=== PATIENT | male | born 1950 | race Caucasian/White ===

== ENCOUNTER 2019-12-28 18:57 | Inpatient (IN) ==
[~2019-12-28 18:57] MED LIST: FOLIC ACID 1 MG in SYRINGE 9.8 ML IV SCH
[2019-12-28] MEDS ORDERED: ACETAMINOPHEN 325 MG TAB PO PRN (22:33)
[2019-12-28] MEDS ORDERED: ALUMINUM/MAGNESIUM SUSP 30 ML UDC PO PRN (22:33)
[2019-12-28] MEDS ORDERED: ONDANSETRON INJ 2 MG/ML 2 ML VIAL IV PRN (22:33)
--- NOTE | 2019-12-28 22:35 | History & Physical Report ---
Date of Service December 28, 2019 Assessment & Plan (1) Alcoholism: 69-year-old male with past medical history hypertension, COPD, alcoholism with hepatic cirrhosis/portal hypertension/esophageal varices, thrombocytopenia, anemia presents from outside hospital for management of alcohol withdrawal. Alcohol withdrawal/abuse -Admit to Med Tele Unknown last ingestion of EtOH or how many drinks per day patient consumes. EtOH less than [address] on AWSS protocol -EKG: NSR with prolonged QT/QTc 452/491 IV thiamine 100 mg twice daily and IV folate 1 mg daily. Can transition to p.o. moving forward. Multivitamin when able We will make patient n.p.o. 2/2 AMS IVF with D5 with 1/2 NSS@100 mls/hr -B12, Folate, Mg, Phos, PT/INR in the AM. Phlebotomy was unable to get another stick, will retry in AM Unable to calculate MELD score at this time Appreciate case management assistance for outpatient management Continue with ongoing EtOH cessation counseling. Patient continues to decline per outpatient notes Hepatic cirrhosis/portal hypertension/esophageal varices/elevated liver enzymes Secondary to alcohol abuse. AST ALT ratio indicative of alcoholic pt Holding nadolol 40 mg daily Reviewed the outpatient notes it appears patient has declined any sort of GI follow-up -see CT Abd/Pelvis under 'Elevated T bili' -These are noted in patient's past medical history, however it appears patient has not had endoscopy from either [facility] or [facility]. It appears that patient was attempted to be set up with [facility], however patient did not follow through. Will consult GI consult while inpatient as patient will need EGD, variceal rule out and imaging for HCC every 6 months, etc. Thrombocytopenia/Macrocytic anemia Hemoglobin 10.2, Platelets 72 on admission. Secondary to alcoholism. Stable, near baseline Daily CBC GI consulted as above for additional consideration for EGD/colonoscopy for evaluation of chronic anemia Elevated T.bili -T bili 10.1, lipase 826 admission. Pt with h/o the same -nontender abd exam. Afebrile -CT Abd/Pelvis was done at OSH and only a CD was provided with images, no documentation. However, there are no available CD compatible computers available except that in radiology who are closed at this hour. We will send CD down in AM to be read and not repeat CT image here as no acute indication Hypokalemia Potassium 2.8 on admission Repleting with K riders Will trend daily and replete as necessary Hypertension We will hold patient's amlodipine 5 mg, nadolol 40 mg IV hydralazine as needed for systolic greater than 190 COPD Stable Continue Symbicort twice daily, Incruse Ellipta daily once able FEN/GI: D5 with 1/2 NSS@100. N.p.o. DVT prophylaxis: Heparin SQ Full code Dispo: Med telemetry. Appreciate CM assistance moving forward for discharge planning Admission and Anticipated Discharge Date Admission Date: December 28, 2019 History of Present Illness Chief Complaint: Alcohol withdrawal Primary Care Provider: Andressa Ballard DO 69-year-old male with past medical history hypertension, COPD, alcoholism with hepatic cirrhosis/portal hypertension/esophageal varices, thrombocytopenia, anemia presents as a direct admit from [facility] for alcohol withdrawal management. History collected from paperwork from outside hospital as patient is unable to provide history at this time. Patient presented to outside hospital for altered mental status, reported to be entering other people's apartments and was agitated. At outside hospital patient was given IV hydration along with a banana bag, IV Ativan. Transferred to our hospital for additional management. Outside hospital work-up: Pertinent labs: Hemoglobin 10.6, hematocrit 29.9, MCV 103.8, platelet 97, creatinine 1.51, T bili 10.9, potassium 2.8, alk phos 128, lipase 3232, AST 118, ammonia 46, lactic acid 2.1. ALT WNL 57, ethanol WNL 4 EKG: Normal sinus rhythm Chest x-ray: Hyperexpanded lungs without evidence of acute cardiopulmonary disease CT head: No acute intracranial abnormality. Moderate generalized volume loss and mild small vessel ischemic change. Allergies Allergy/AdvReac Type Severity Reaction Status Date / Time albuterol Allergy Mild eye Verified 11/07/19 18:32 swelling aspirin AdvReac Mild uset Verified 11/07/19 18:32 stomach Home Medications Home Medications Medication Instructions Recorded Confirmed Type amlodipine 5 mg tablet 5 mg PO DAILY 04/01/19 11/07/19 History cholecalciferol (vitamin D3) 1,250 50,000 units PO WEEKLY #8 cap 04/04/19 11/07/19 Rx mcg (50,000 unit) capsule ondansetron HCl 4 mg tablet 4 mg PO QID PRN #90 tab 04/04/19 10/27/19 Rx nadolol 40 mg tablet 40 mg PO DAILY #30 tab 08/30/19 11/07/19 Rx thiamine HCl (vitamin B1) 100 mg 100 mg PO DAILY #30 tab 08/30/19 11/07/19 Rx tablet omeprazole 20 mg capsule,delayed 20 mg PO DAILY #30 cap 09/01/19 11/07/19 Rx release umeclidinium 62.5 mcg/actuation 1 puffs INH DAILY #30 ea 09/30/19 11/07/19 Rx blister powder for inhalation fluticasone 250 mcg-salmeterol 50 1 puffs INH BID #14 ea 10/27/19 11/07/19 Rx mcg/dose blistr powdr for inhalation folic acid 1 mg tablet 1 mg PO DAILY 11/07/19 11/07/19 History magnesium oxide 400 mg (241.3 mg 400 mg PO DAILY 11/07/19 11/07/19 History magnesium) tablet Past Med/Surg History Social History Smoking Status: Former smoker Age Quit Using Tobacco: 38; packs per day: 3; Hx Alcohol Use: Yes (aox1, n/a) Alcohol type: beer Alcohol type Comment: 2-3 beers/day Hx Substance Use: No (aox1, n/a) Preferred Language: Spanish Communication Ability: Effective Visual Impairment: No Limitations Hearing Ability: Hard of Hearing Beliefs That Will Affect Care: None marital status: Current Living Situation: Alone Current Living Situation Comment: Lives in [facility] current occupational status: retired Childhood Exposure to Second-Hand Smoke: No caffeine: Yes (Coffee x 1/2 cup per day. ) during the past year weight has: remained stable Dental Care, Regularly: No Physical Activity Frequency: Daily Seatbelt Use: always Sunscreen Use: No Review of Systems Review of Systems: Unobtainable due to cognitive status Physical Exam Constitutional: + intoxicated appearing and + disheveled Eyes: + scleral abnormality (icteric ) Respiratory: normal respiratory effort; no labored breathing course breath sounds Cardiovascular: RRR, no murmur, no edema Gastrointestinal (Abdomen): normal bowel sounds, soft, nontender, no hepatosplenomegaly Skin: no rashes, warm and dry Psychiatric: Orientation: + not oriented x 3 confused, agitated at times Results & Data Results & Data ([facility]) Vital Signs (Past 12 Hours) Vital Signs Temp Pulse Resp BP Pulse Ox 12/28/19 21:09 36.4 C L 81 20 174/85 H 96 Laboratory Results Laboratory Results - last 24 hr 12/28/19 12/28/19 12/28/19 22:51 22:51 22:51 WBC 7.48 RBC 2.78 L Hgb 10.2 L Hct 28.8 L MCV 103.6 H MCH 36.7 H MCHC 35.4 RDW Std Deviation 56.6 H RDW Coeff of Margarita 14.9 H Plt Count 72 L MPV 8.8 Immature Gran % (Auto) 0.3 Neut % (Auto) 80.6 Lymph % (Auto) 9.6 [place] % (Auto) 8.7 Eos % (Auto) 0.7 Baso % (Auto) 0.1 Neut # (Auto) 6.03 Lymph # (Auto) 0.72 L [place] # (Auto) 0.65 H Eos # (Auto) 0.05 Baso # (Auto) 0.01 Immature Gran # (Auto) 0.02 Platelet Estimate Decreased L Echinocytes 1+ Sodium 141 Potassium 2.8 L Chloride 111 H Carbon Dioxide 23 Anion Gap 7.0 BUN 23 H Creatinine 1.28 Est Cr Clr Drug Dosing 41.8 Est GFR ( Amer) 64.8 Est GFR (Non-Af Amer) 55.9 BUN/Creatinine Ratio 18.3 Glucose 86 Calcium 9.3 Total Bilirubin 10.1 H AST 104 H ALT 55 Alkaline Phosphatase 120 H Ammonia 17.6 Total Protein 6.5 Albumin 2.9 L Globulin 3.6 Albumin/Globulin Ratio 0.8 L Lipase 826 H Ethyl Alcohol mg/dL 12/28/19 22:51 WBC RBC Hgb Hct MCV MCH MCHC RDW Std Deviation RDW Coeff of Margarita Plt Count MPV Immature Gran % (Auto) Neut % (Auto) Lymph % (Auto) [place] % (Auto) Eos % (Auto) Baso % (Auto) Neut # (Auto) Lymph # (Auto) [place] # (Auto) Eos # (Auto) Baso # (Auto) Immature Gran # (Auto) Platelet Estimate Echinocytes Sodium Potassium Chloride Carbon Dioxide Anion Gap BUN Creatinine Est Cr Clr Drug Dosing Est GFR ( Amer) Est GFR (Non-Af Amer) BUN/Creatinine Ratio Glucose Calcium Total Bilirubin AST ALT Alkaline Phosphatase Ammonia Total Protein Albumin Globulin Albumin/Globulin Ratio Lipase Ethyl Alcohol mg/dL < 3.0 Medications Administered Current Inpatient Medications Acetaminophen (Tylenol) 650 mg PO Q4H PRN PRN Reason: pain/fever Stop: 01/27/20 22:32 Al Hydrox/Mg Hydrox/Simethicone (Maalox) 30 ml PO Q6H PRN PRN Reason: Dyspepsia Stop: 01/27/20 22:32 Heparin Sodium (Porcine) (Heparin Sodium (Porcine)) 5,000 units SQ Q12 BRANDI Stop: 01/28/20 08:59 Hydralazine HCl (Hydralazine Hcl) 10 mg IV Q6H PRN PRN Reason: Hypertension Stop: 01/27/20 22:59 Dextrose/Sodium Chloride (D5w And 1/2nss) 1,000 mls @ 100 mls/hr IV .Q10H BRANDI Stop: 01/27/20 22:59 Last Infusion: 12/28/19 23:58 Dose: 100 mls/hr Documented by: Thiamine HCl 100 mg/ Syringe 10 mls @ 2 mls/min IV BID BRANDI Stop: 01/27/20 22:59 Last Admin: 12/28/19 23:39 Dose: 2 mls/min Documented by: Lorazepam (Ativan) 1 mg in 2 mls @ 2 mls/min IV UD PRN; Protocol PRN Reason: EtOH Withdrawl AWSS Score 6,7 Stop: 01/27/20 22:54 Lorazepam (Ativan) 2 mg in 4 mls @ 4 mls/min IV UD PRN; Protocol PRN Reason: EtOH Withdrawl AWSS Score 8,9 Stop: 01/27/20 22:54 Lorazepam (Ativan) 3 mg in 6 mls @ 4 mls/min IV ONCE PRN; Protocol PRN Reason: EtOH Withdrawl AWSS Score >=10 Stop: 01/27/20 22:54 Folic Acid 1 mg/ Syringe 10 mls @ 5 mls/min IV QAM BRANDI Stop: 01/28/20 08:59 Potassium Chloride (K Jamal / Wtr) 10 meq in 100 mls @ 100 mls/hr IV Q1H BRANDI Stop: 12/29/19 07:44 Last Admin: 12/28/19 23:59 Dose: 100 mls/hr Documented by: Ondansetron HCl (Zofran) 4 mg IV Q6H PRN PRN Reason: Nausea Stop: 01/27/20 22:32 Supervising Physician Co-Signing Physician Notes Patient seen and examined, chart reviewed, case discussed with Dr. Houston and I agree with his assessment and plan as documented above. Resident Activity Tracking Resident Involvement: Resident Care Provided Care Provided: Adult Hospital Medicine
[2019-12-28] MEDS ORDERED: LORazepam 3 MG/6 ML VIAL IV PRN (22:55)
[2019-12-28] MEDS ORDERED: LORazepam 1 MG/2 ML VIAL IV PRN (22:55)
[2019-12-28] MEDS ORDERED: ATIVAN IV ALCOHOL WITHDRAWL IV PRN (22:55)
[2019-12-28] MEDS ORDERED: LORazepam 2 MG/4 ML VIAL IV PRN (22:55)
[2019-12-28] MEDS ORDERED: HydrALAZINE HCL 20 MG/ML VIAL IV PRN (23:00)
[2019-12-28 23:05] LABS: Hematocrit (blood only) 28.8 % (42-52); Hemoglobin 10.2 g/dL (14.0-18.0); Mean Corpuscular Hemoglobin 36.7 pg (25-34); Mean Corpuscular Hgb Conc 35.4 g/dL (32-36); Mean Corpuscular Volume 103.6 fL (80-100); RDW Coefficient of Variation 14.9 % (11.5-14.5); RDW Standard Deviation 56.6 fL (36.4-46.3); Red Blood Count 2.78 M/uL (4.7-6.1); White Blood Count 7.48 K/uL (4.8-10.8)
[2019-12-28 23:24] LABS: Albumin Globulin Ratio 0.8 (0.9-2); Albumin Level 2.9 gm/dl (3.4-5.0); BUN Creatinine Ratio 18.3 (10-20); Bilirubin,Total 10.1 mg/dl (0.2-1); Calcium 9.3 mg/dl (8.5-10.1); Creatinine Clr Calc Pharmacy 41.8 ml/min; Est GFR (African American) 64.8; Est GFR (Non-African American) 55.9; Globulin 3.6 gm/dl (2.5-4.0); Potassium 2.8 mmol/L (3.5-5.1); Total Protein 6.5 gm/dl (6.4-8.2)
[2019-12-28 23:38] LABS: Mean Platelet Volume 8.8 fL (7.4-10.4); Platelet Count 72 K/uL (130-400)
[2019-12-28 23:39] LABS: Basophils # (auto) 0.01 K/uL (0-0.2); Basophils % (auto) 0.1 %; Echinocytes 1+; Eosinophils # (auto) 0.05 K/uL (0-0.5); Eosinophils % (auto) 0.7 %; Immature Granulocytes # (auto) 0.02 K/uL (0.00-0.02); Immature Granulocytes % (auto) 0.3 %; Lymphocytes # (auto) 0.72 K/uL (1.2-3.4); Lymphocytes % (auto) 9.6 %; Monocytes # (auto) 0.65 K/uL (0.11-0.59); Monocytes % (auto) 8.7 %; Neutrophils # (auto) 6.03 K/uL (1.4-6.5); Neutrophils % (auto) 80.6 %; Platelet Estimate Decreased (Normal)
[2019-12-28] MEDS: THIAMINE HCL 100 MG in SYRINGE 9 ML IV SCH (23:39)
[2019-12-28] MEDS: D5W AND 1/2NSS 1,000 ML IV SCH (23:41)
[2019-12-28] MEDS: POTASSIUM CHLORIDE / WTR 10 MEQ/100 ML PLCT IV SCH (23:59)
[2019-12-29] MEDS: POTASSIUM CHLORIDE / WTR 10 MEQ/100 ML PLCT IV SCH ×11 (01:09→15:18)
[2019-12-29 05:35] LABS: Hematocrit (blood only) 28.2 % (42-52); Hemoglobin 10.3 g/dL (14.0-18.0); Mean Corpuscular Hgb Conc 36.5 g/dL (32-36); Mean Corpuscular Volume 104.1 fL (80-100); RDW Standard Deviation 56.6 fL (36.4-46.3); Red Blood Count 2.71 M/uL (4.7-6.1); White Blood Count 8.67 K/uL (4.8-10.8)
[2019-12-29 05:36] LABS: Mean Platelet Volume 8.9 fL (7.4-10.4); Platelet Count 69 K/uL (130-400)
[2019-12-29 05:44] LABS: INR 1.9 (0.9-1.1)
[2019-12-29 06:06] LABS: Albumin Globulin Ratio 0.8 (0.9-2); Albumin Level 2.9 gm/dl (3.4-5.0); BUN Creatinine Ratio 17.2 (10-20); Bilirubin,Total 10.4 mg/dl (0.2-1); Creatinine Clr Calc Pharmacy 42.8 ml/min; Est GFR (African American) 66.7; Est GFR (Non-African American) 57.6; Globulin 3.6 gm/dl (2.5-4.0); Magnesium 1.5 mg/dl (1.8-2.4); Potassium 3.4 mmol/L (3.5-5.1); Total Protein 6.5 gm/dl (6.4-8.2)
[2019-12-29 06:26] LABS: Basophils # (auto) 0.01 K/uL (0-0.2); Basophils % (auto) 0.1 %; Eosinophils # (auto) 0.05 K/uL (0-0.5); Eosinophils % (auto) 0.6 %; Immature Granulocytes # (auto) 0.01 K/uL (0.00-0.02); Immature Granulocytes % (auto) 0.1 %; Lymphocytes # (auto) 0.68 K/uL (1.2-3.4); Lymphocytes % (auto) 7.8 %; Monocytes # (auto) 0.78 K/uL (0.11-0.59); Neutrophils # (auto) 7.14 K/uL (1.4-6.5); Neutrophils % (auto) 82.4 %; Target Cells 1+
--- NOTE | 2019-12-29 06:59 | Billing Data ---
Date of Service December 28, 2019 Coding Level of Care Code 51804 Initial Inpt Care Lvl 3
[2019-12-29 07:09] LABS: Phosphorus 0.9 mg/dl (2.5-4.9)
[2019-12-29] MEDS ORDERED: POTASSIUM PHOS 3 MMOL/1 ML INFUSION IV STA ×2 (08:03→11:16)
[2019-12-29 08:12] LABS: Folate (Folic Acid) 13.12 ng/ml (>5.38)
[2019-12-29] MEDS: FOLIC ACID 1 MG in SYRINGE 9.8 ML IV SCH (08:12)
[2019-12-29] MEDS: THIAMINE HCL 100 MG in SYRINGE 9 ML IV SCH ×2 (08:13→21:00)
[2019-12-29] MEDS: HEPARIN SOD 5,000 UNIT/0.5 ML VIAL SQ SCH ×2 (08:16→20:55)
[2019-12-29] MEDS ORDERED: POTASSIUM PHOSPHATE 30 MMOL in SODIUM CHLORIDE 0.9% 500 ML IV ONE (08:45)
--- NOTE | 2019-12-29 08:57 | Electrocardiogram Report ---
Test Reason : Blood Pressure : / mmHG Vent. Rate : 071 BPM Atrial Rate : 071 BPM P-R Int : 158 ms QRS Dur : 080 ms QT Int : 452 ms P-R-T Axes : 067 020 063 degrees QTc Int : 491 ms Normal sinus rhythm Normal ECG No previous ECGs available Confirmed by Aquiles Burgos ([id number]) on 12/29/2019 8:56:45 AM Referred By: Soraida Dong Confirmed By:Aquiles Burgos
[2019-12-29] MEDS: MAGNESIUM OXIDE 400 MG TAB PO SCH ×2 (09:00→09:16)
--- NOTE | 2019-12-29 10:26 | Gastrointestinal Consultation ---
Date of Consultation December 29, 2019 Supervising Physician Co-Signing Physician Notes I have personally seen and examined the patient with STEPHANIE Hilton. Her note reflects my exam and findings. I agree with her impression and plan. ETOH level on admission was normal. Unclear when patient had last drink. At this point treat MS changes as hepatic encephalopathy; facilitate frequent BMs, keep K above 4. Also check AFP. Guille Higgins M.D. History of Present Illness Reason for Consultation: Hepatic Cirrhosis Requesting Physician: Dr. Padilla Attending Physician: Jennifer Padilla MD History of Present Illness Mr. Ted Eason is a 69 yr old male pt of Andressa Ballard with a hx of HTN, COPD who presents to the ED for alcohol withdrawal. The pt's H&P records that he has ETOH cirrhosis, portal HTN and esopahgeal varices. This consult was initially placed for [facility], however, because he establised with [facility] by televideo visit in August, the consult was changed to our group. A review of that [facility] televideo visit shows that he was referred for cirrhosis, that he is continuing to drink alcohol. Doormen. has not yet obtained any records of prior endoscopy apparently completed by [facility]. Labs were ordered but pt has not presented to a lab to obtain and the pt reported that he was unable to arrange OP EGD/COlonoscopy due to transporatation issues. Evidence that he has cirrhosis, from prior imaging in the [facility] records: CT 08/26/19 mentions a nodular contour to the liver and an enlarged spleen. His pancytopenia is also suggestive of cirrhosis: Hb 10, Hct 28, platlets 69. INR is elevated at 1.9 suggestive of liver disfunction. During my interview and exam, he was arousable but did not answer any questions and on command to open his eyes opened only his right eye. He c/o being cold and resisted exam. He is not obtunded. Allergies Allergy/AdvReac Type Severity Reaction Status Date / Time albuterol Allergy Mild eye Verified 11/07/19 18:32 swelling aspirin AdvReac Mild uset Verified 11/07/19 18:32 stomach Home Medications Home Medications Medication Instructions Recorded Confirmed Type amlodipine 5 mg tablet 5 mg PO DAILY 04/01/19 11/07/19 History cholecalciferol (vitamin D3) 1,250 50,000 units PO WEEKLY #8 cap 04/04/19 11/07/19 Rx mcg (50,000 unit) capsule ondansetron HCl 4 mg tablet 4 mg PO QID PRN #90 tab 04/04/19 10/27/19 Rx nadolol 40 mg tablet 40 mg PO DAILY #30 tab 08/30/19 11/07/19 Rx thiamine HCl (vitamin B1) 100 mg 100 mg PO DAILY #30 tab 08/30/19 11/07/19 Rx tablet omeprazole 20 mg capsule,delayed 20 mg PO DAILY #30 cap 09/01/19 11/07/19 Rx release umeclidinium 62.5 mcg/actuation 1 puffs INH DAILY #30 ea 09/30/19 11/07/19 Rx blister powder for inhalation fluticasone 250 mcg-salmeterol 50 1 puffs INH BID #14 ea 10/27/19 11/07/19 Rx mcg/dose blistr powdr for inhalation folic acid 1 mg tablet 1 mg PO DAILY 11/07/19 11/07/19 History magnesium oxide 400 mg (241.3 mg 400 mg PO DAILY 11/07/19 11/07/19 History magnesium) tablet Patient History Social History Smoking Status: Former smoker Age Quit Using Tobacco: 38; packs per day: 3; Hx Alcohol Use: Yes (aox1, n/a) Alcohol type: beer Alcohol type Comment: 2-3 beers/day Hx Substance Use: No (aox1, n/a) Preferred Language: Maori Communication Ability: Effective Visual Impairment: No Limitations Hearing Ability: Hard of Hearing Beliefs That Will Affect Care: None marital status: Current Living Situation: Alone Current Living Situation Comment: Lives in [facility] current occupational status: retired Childhood Exposure to Second-Hand Smoke: No caffeine: Yes (Coffee x 1/2 cup per day. ) during the past year weight has: remained stable Dental Care, Regularly: No Physical Activity Frequency: Daily Seatbelt Use: always Sunscreen Use: No Results & Data ([facility]) Vital Signs (Past 12 Hours) Vital Signs Temp Pulse Pulse Resp BP Pulse Ox 12/29/19 08:03 37.0 C 86 18 130/75 96 12/29/19 07:00 80 12/29/19 04:15 36.3 C L 73 20 144/70 H 97 12/29/19 00:29 67 12/28/19 22:35 75
[2019-12-29 10:56] LABS: BUN Creatinine Ratio 15.4 (10-20); Calcium 8.5 mg/dl (8.5-10.1); Creatinine Clr Calc Pharmacy 42.8 ml/min; Est GFR (African American) 66.7; Est GFR (Non-African American) 57.6; Potassium 3.6 mmol/L (3.5-5.1)
[2019-12-29 11:12] LABS: Phosphorus 1.2 mg/dl (2.5-4.9)
[2019-12-29] MEDS: D5W AND 1/2NSS 1,000 ML IV SCH (11:29)
[2019-12-29] MEDS: MAGNESIUM SULFATE / D5W 1 GM/100 ML BAG IV SCH ×2 (13:15→15:18)
[2019-12-29] MEDS: LACTULOSE SYRUP 20 GM/30 ML UDC PO SCH ×2 (15:17→20:54)
--- NOTE | 2019-12-29 15:38 | XCELERA ---
[id number]
[2019-12-29 16:15] LABS: BUN Creatinine Ratio 16.3 (10-20); Calcium 8.1 mg/dl (8.5-10.1); Creatinine Clr Calc Pharmacy 48.6 ml/min; Est GFR (African American) 77.9; Est GFR (Non-African American) 67.2; Phosphorus 2.6 mg/dl (2.5-4.9); Potassium 4.3 mmol/L (3.5-5.1)
[2019-12-29] MEDS: RIFAXIMIN 550 MG TABLET PO SCH (20:54)
--- NOTE | 2019-12-29 22:04 | Hospitalist Progress Note ---
Date of Service December 29, 2019 Assessment & Plan (1) Altered mental status: Ted Eason is a 69-year-old male with past medical history hypertension, COPD, alcoholism with hepatic cirrhosis/portal hypertension/esophageal varices, thrombocytopenia, anemia presents from outside hospital for management of alcohol withdrawal. Altered mental status - metabolic/hepatic Similar presentation during September 2019 admission at [facility]. confusion during which was confused but did not have a congruent ethyl alcohol (4mg/dL). Unable to obtain collateral history of continued alcohol use. No metabolic acidosis or anion gap No sign of infection. suspect hepatic encephalopathy in setting of alcohol use. -GI consult GI consult recommendations: encourage BM with lactulose, replete K, check AFP. IV thiamine 100 mg twice daily and IV folate 1 mg daily. Hepatic cirrhosis/portal hypertension/esophageal varices/elevated liver enzymes and bilirubin Secondary to alcohol abuse. AST ALT ratio indicative of alcoholic pt Holding nadolol 40 mg daily Reviewed the outpatient notes it appears patient has declined any sort of GI follow-up Thrombocytopenia/Macrocytic anemia Hemoglobin 10.2, Platelets 72 on admission. Secondary to alcoholism. Stable, near baseline Daily CBC. Macrocytic anemia is stable. Hypokalemia Potassium 2.8 on admission Repleting with K riders Will trend daily and replete as necessary Prolonged QTc -EKG: NSR with prolonged QT/QTc 452/491 -replete K Hypophosphatemia -repletion Hypertension We will hold patient's amlodipine 5 mg, nadolol 40 mg IV hydralazine as needed for systolic greater than 190 COPD Stable Continue Symbicort twice daily, Incruse Ellipta daily once able FEN/GI: No fluids. Continue NPO DVT prophylaxis: Heparin SQ Full code Dispo: Med tele Admission and Anticipated Discharge Date Admission Date: December 28, 2019 Supervising Physician Co-Signing Physician Notes Resident Physician Supervision Note: I independently interviewed and examined the patient and verified the valencia history and physical, reviewed labs and image studies, discussed the case with the resident Dr. Johnson and agree with the findings and care plan. Subjective Ted Eason is a 69 year old male w/ hx of hypertension, COPD, alcoholism with hepatic cirrhosis/portal hypertension/esophageal varices, thrombocytopenia, anemia who presents was directly admited to our service from [facility] for confusion. Unable to obtain much history from patient given his mental status. On initial visit to room, patient was babbling and not responding to provider. Upon revisit, patient was able to answer but was still very sleepy. Review of Systems Review of Systems: Unable to obtain much ROS from patient given his mental s tatus. Cardiovascular: Denies Chest pain Respiratory: Denies shortness of breath Gastrointestinal: Denies abdominal pain Musculoskeletal: Denies muscle aches/pain Physical Exam Physical Exam: General: NAD. HEENT: Atraumatic, normocephalic. Jaundiced eyes. Pulm: CTAB. -wheezes, -rales, -rhonchi. No increase work of breathing. No respiratory distress. No lower extremity edema. Cardiac: RRR, -mrg. Abdominal: Nontender, nondistended, soft. Results & Data Results & Data ([facility]) Vital Signs (Past 12 Hours) Vital Signs Temp Pulse Resp BP Pulse Ox 12/29/19 16:00 36.5 C 82 18 125/64 96 12/29/19 13:43 36.8 C 75 18 132/62 96
[2019-12-30] MEDS: MAGNESIUM OXIDE 400 MG TAB PO SCH (08:40)
[2019-12-30] MEDS: HEPARIN SOD 5,000 UNIT/0.5 ML VIAL SQ SCH ×2 (08:40→21:15)
[2019-12-30] MEDS: FOLIC ACID 1 MG in SYRINGE 9.8 ML IV SCH (08:40)
[2019-12-30] MEDS: RIFAXIMIN 550 MG TABLET PO SCH ×2 (08:40→21:19)
[2019-12-30] MEDS: THIAMINE HCL 100 MG in SYRINGE 9 ML IV SCH ×2 (08:40→21:19)
[2019-12-30] MEDS: LACTULOSE SYRUP 20 GM/30 ML UDC PO SCH ×3 (08:44→21:18)
[2019-12-30 09:32] LABS: Hematocrit (blood only) 26.6 % (42-52); Hemoglobin 9.4 g/dL (14.0-18.0); Mean Corpuscular Hemoglobin 37.2 pg (25-34); Mean Corpuscular Hgb Conc 35.3 g/dL (32-36); Mean Corpuscular Volume 105.1 fL (80-100); RDW Coefficient of Variation 15.4 % (11.5-14.5); RDW Standard Deviation 59.5 fL (36.4-46.3); Red Blood Count 2.53 M/uL (4.7-6.1)
[2019-12-30 09:40] LABS: Albumin Level 2.5 gm/dl (3.4-5.0); BUN Creatinine Ratio 15.1 (10-20); Calcium 8.4 mg/dl (8.5-10.1); Creatinine Clr Calc Pharmacy 51.2 ml/min; Est GFR (African American) 77.9; Est GFR (Non-African American) 67.2; Magnesium 1.8 mg/dl (1.8-2.4); Potassium 3.8 mmol/L (3.5-5.1)
[2019-12-30 09:44] LABS: Albumin Globulin Ratio 0.8 (0.9-2); Bilirubin,Total 9.5 mg/dl (0.2-1); Globulin 3.2 gm/dl (2.5-4.0); Phosphorus 1.7 mg/dl (2.5-4.9); Total Protein 5.7 gm/dl (6.4-8.2)
[2019-12-30 10:37] LABS: Mean Platelet Volume 9.4 fL (7.4-10.4); Platelet Count 66 K/uL (130-400)
[2019-12-30 10:38] LABS: Basophils # (auto) 0.01 K/uL (0-0.2); Basophils % (auto) 0.1 %; Echinocytes 1+; Eosinophils % (auto) 0.9 %; Immature Granulocytes # (auto) 0.03 K/uL (0.00-0.02); Immature Granulocytes % (auto) 0.3 %; Lymphocytes # (auto) 0.82 K/uL (1.2-3.4); Lymphocytes % (auto) 7.6 %; Monocytes # (auto) 1.27 K/uL (0.11-0.59); Monocytes % (auto) 11.8 %; Neutrophils # (auto) 8.57 K/uL (1.4-6.5); Neutrophils % (auto) 79.3 %
[2019-12-30 11:24] LABS: INR 1.9 (0.9-1.1); Prothrombin Time 18.9 Seconds (9.0-12.0)
--- NOTE | 2019-12-30 12:34 | Gastroenterology Progress Note ---
Date of Service December 30, 2019 Assessment & Plan (1) Hepatic cirrhosis: Mr. Eason is a 69 yr old male with ETOH cirrhosis, (likely) continuing to drink alcohol who arrived in confusion/lethargy - likely hepatic encephalopathy, now improving on lactulose. 1. Continue lactulose and rifaximin 2. Needs complete and permanent alcohol cessation 3. Follow CBC INR, LFTs periodically possibly every 2 days. 4. Low-salt diet 5. Some records say that he was recently admitted to [facility] and underwent endoscopy. We requested records and are awaiting reports from [facility]. 6. When ready for discharge needs to get set up for outpatient GI follow-up. Will need every 6 month liver imaging and AFP, as well as meds for prevention of hepatic encephalopathy. He may be due for an EGD. 7. GI will watch peripherally, expect LFTs to fluctuate somewhat but trend downward slowly . Please notify us if any worsening in condition. Present on Admission?: Yes Admission and Anticipated Discharge Date Admission Date: December 28, 2019 Supervising Physician Co-Signing Physician Notes I have personally seen and examined the patient with STEPHANIE Hilton on 12/30/19. Her note reflects my exam and findings. I agree with her impression and plan. Cont treatment of hepatic enceph. Once stable, out patient f/u with regular providers. Guille Higgins M.D. Subjective Mr. Eason is a 69-year-old male with alcoholic cirrhosis, possibly continuing to drink alcohol, who presented on 12/29/2019 for management of alcohol withdrawal. On arrival, lipase was elevated, he was quite lethargic. Today he is more awake able to walk with assistance and feed himself. Now passing 3-4 loose brown BMs/day on lactulose/rifaxamin. WBC 10, hemoglobin 9.4. T Bili 10 ->9 INR 1.9->1.9 Kidney function is preserved. Review of Systems Review of Systems: Unobtainable due to mental health condition Physical Exam Constitutional: WD/WN, vitals as above + ill appearing and + thin Eyes: PERRL, conjunctivae normal, anicteric sclerae ENMT: external ear and nose normal, oropharynx normal Neck: trachea midline, no thyromegaly Respiratory: Auscultation: + diminished lung sounds (at bases) Cardiovascular: RRR, no murmur, no edema Gastrointestinal (Abdomen): normal bowel sounds, soft, nontender, no he patosplenomegaly Skin: + jaundice Neurologic: PERRL, EOMI, accommodation nl, no face palsy, no dysarthria Motor/Sensory: no tremor No asterix Psychiatric: awake, dull affect, answers only a few simple questions. Results & Data ([facility]) Vital Signs (Past 12 Hours) Vital Signs Temp Pulse Pulse Resp BP BP Pulse Ox 12/30/19 11:38 37.2 C 85 20 108/63 97 12/30/19 07:30 37.3 C 56 L 16 120/65 93 12/30/19 07:00 96 H 12/30/19 04:57 86 12/30/19 03:30 37.2 C 83 20 137/74 98 12/30/19 00:51 37.3 C 79 20 119/66 96 Laboratory Results See HPI for pertinent labs
--- NOTE | 2019-12-30 20:34 | Hospitalist Progress Note ---
Date of Service December 30, 2019 Assessment & Plan (1) Altered mental status: Ted Eason is a 69-year-old male with past medical history hypertension, COPD, alcoholism with hepatic cirrhosis/portal hypertension/esophageal varices, thrombocytopenia, anemia presents from outside hospital for management of alcohol withdrawal. Altered mental status - metabolic/hepatic Similar presentation during September 2019 admission at [facility]. confusion during which was confused but did not have a congruent ethyl alcohol (4mg/dL). Mentation improving. [place] Unable to obtain collateral history of continued alcohol use. No metabolic acidosis or anion gap No sign of infection. suspect hepatic encephalopathy in setting of alcohol use. -GI consult GI consult recommendations: encourage BM with lactulose, replete K, check AFP . IV thiamine 100 mg twice daily and IV folate 1 mg daily. Hepatic cirrhosis/portal hypertension/esophageal varices/elevated liver enzymes and bilirubin Secondary to alcohol abuse. AST ALT ratio indicative of alcoholic pt Holding nadolol 40 mg daily Reviewed the outpatient notes it appears patient has declined any sort of GI follow-up Thrombocytopenia/Macrocytic anemia -Hemoglobin decreased slightly, 10.3-94, Platelets 72 on admission. Secondary to alcoholism. Stable, near baseline Daily CBC. Macrocytic anemia is stable. Hypokalemia Potassium 2.8 on admission Repleting with K riders Will trend daily and replete as necessary Prolonged QTc -EKG: NSR with prolonged QT/QTc 452/491 -replete K Hypophosphatemia -repletion Hypertension We will hold patient's amlodipine 5 mg, nadolol 40 mg IV hydralazine as needed for systolic greater than 190 COPD Stable Continue Symbicort twice daily, Incruse Ellipta daily once able FEN/GI: No fluids. Continue NPO DVT prophylaxis: Heparin SQ Full code Dispo: Med tele Admission and Anticipated Discharge Date Admission Date: December 28, 2019 Subjective He was able to provide additional history today. He endorses some drinking at home, last drink was 1 week ago. He drinks beer and occasional hard liquor. Denies any fever, chills, nausea, vomiting, chest pain, shortness of breath, abdominal pain. He denies alcohol withdrawal symptoms. Review of Systems Review of Systems: Constitutional: Denies fever, chills, Cardiovascular: Denies Chest pain Respiratory: Denies shortness of breath, cough, difficulty breathing Gastrointestinal: Denies abdominal pain, nausea, vomiting, constipation, diarrhea Genitourinary: Denies urinary symptoms including dysuria Musculoskeletal: Denies weakness Neurological: Denies headache Physical Exam Physical Exam: General: A&Ox3. NAD. Cooperative. HEENT: Atraumatic, normocephalic. Scleral icterus bilaterally. Pulm: CTAB. -wheezes, -rales, -rhonchi. Symmetrical chest rise. No increase work of breathing. No respiratory distress. Cardiac: RRR, -mrg. Radial pulses intact and symmetrical. Abdominal: Nontender, nondistended, soft. BS present. Neuro: mild tremor on R hand Results & Data Results & Data ([facility]) Vital Signs (Past 12 Hours) Vital Signs Temp Pulse Pulse Resp BP BP Pulse Ox 12/30/19 15:08 37.4 C 82 18 111/60 96 12/30/19 14:20 83 12/30/19 11:38 37.2 C 85 20 108/63 97
[2019-12-31 05:55] LABS: Hematocrit (blood only) 24.7 % (42-52); Hemoglobin 8.8 g/dL (14.0-18.0); Mean Corpuscular Hemoglobin 37.4 pg (25-34); Mean Corpuscular Hgb Conc 35.6 g/dL (32-36); Mean Corpuscular Volume 105.1 fL (80-100); RDW Coefficient of Variation 15.8 % (11.5-14.5); RDW Standard Deviation 59.6 fL (36.4-46.3); Red Blood Count 2.35 M/uL (4.7-6.1); White Blood Count 8.19 K/uL (4.8-10.8)
[2019-12-31 05:56] LABS: Platelet Count 74 K/uL (130-400)
[2019-12-31 06:38] LABS: Albumin Globulin Ratio 0.7 (0.9-2); Albumin Level 2.2 gm/dl (3.4-5.0); BUN Creatinine Ratio 15.8 (10-20); Bilirubin,Total 7.6 mg/dl (0.2-1); Calcium 8.1 mg/dl (8.5-10.1); Creatinine Clr Calc Pharmacy 52.7 ml/min; Est GFR (African American) 80.5; Est GFR (Non-African American) 69.5; Globulin 3.2 gm/dl (2.5-4.0); Magnesium 1.6 mg/dl (1.8-2.4); Phosphorus 2.2 mg/dl (2.5-4.9); Potassium 3.4 mmol/L (3.5-5.1); Total Protein 5.4 gm/dl (6.4-8.2)
[2019-12-31 06:40] LABS: Basophils # (auto) 0.01 K/uL (0-0.2); Basophils % (auto) 0.1 %; Echinocytes 2+; Eosinophils % (auto) 3.7 %; Immature Granulocytes # (auto) 0.02 K/uL (0.00-0.02); Immature Granulocytes % (auto) 0.2 %; Lymphocytes # (auto) 1.06 K/uL (1.2-3.4); Lymphocytes % (auto) 12.9 %; Monocytes # (auto) 1.11 K/uL (0.11-0.59); Monocytes % (auto) 13.6 %; Neutrophils # (auto) 5.69 K/uL (1.4-6.5); Neutrophils % (auto) 69.5 %; Target Cells 1+
[2019-12-31] MEDS: RIFAXIMIN 550 MG TABLET PO SCH ×2 (08:24→20:27)
[2019-12-31] MEDS: HEPARIN SOD 5,000 UNIT/0.5 ML VIAL SQ SCH ×2 (08:24→20:27)
[2019-12-31] MEDS: MAGNESIUM OXIDE 400 MG TAB PO SCH (08:25)
[2019-12-31] MEDS: FOLIC ACID 1 MG in SYRINGE 9.8 ML IV SCH (08:25)
[2019-12-31] MEDS: LACTULOSE SYRUP 20 GM/30 ML UDC PO SCH ×3 (08:25→20:26)
[2019-12-31] MEDS: THIAMINE HCL 100 MG in SYRINGE 9 ML IV SCH ×2 (08:25→20:27)
--- NOTE | 2019-12-31 12:04 | Hospitalist Progress Note ---
Date of Service December 31, 2019 Assessment & Plan (1) Altered mental status: Ted Eason is a 69-year-old male with past medical history hypertension, COPD, alcoholism with hepatic cirrhosis/portal hypertension/esophageal varices, thrombocytopenia, anemia presents from outside hospital for management of alcohol withdrawal. Altered mental status - metabolic/hepatic Similar presentation during September [address] [facility]. confusion during which was confused but did not have a congruent ethyl alcohol (4mg/dL). Mentation improving. Unable to obtain collateral history of continued alcohol use. Patient report inconsistent h/o last drink and amount of alcohol use. No metabolic acidosis or anion gap No sign of infection. Suspect hepatic encephalopathy in setting of alcohol use. -GI consult GI consult recommendations: encourage BM with lactulose, replete K, check AFP. IV thiamine 100 mg twice daily and IV folate 1 mg daily. Hepatic cirrhosis/portal hypertension/esophageal varices/elevated liver enzymes and bilirubin Secondary to alcohol abuse. AST ALT ratio indicative of alcoholic pt Holding nadolol 40 mg daily. To resume in am. Reviewed the outpatient notes it appears patient has declined any sort of GI follow-up Thrombocytopenia/Macrocytic anemia -Hemoglobin decreased slightly, 10.3-94, Platelets 72 on admission. Secondary to alcoholism. Stable, near baseline Daily CBC. Macrocytic anemia is stable. Hypokalemia Potassium 3.4 today Will trend daily and replete as necessary Prolonged QTc -EKG: NSR with prolonged QT/QTc 452/491 -replete K as needed Hypophosphatemia -repletion as needed Hypertension Holding patient's amlodipine 5 mg, nadolol 40 mg since hypotensive on admission. COPD Stable Continue Symbicort twice daily, Increase Ellipta daily once able FEN/GI: No fluids. Continue NPO DVT prophylaxis: Heparin SQ Full code Dispo: PT recommends physical therapy placement. Case management have been notified and are seeking placement for patient. They are also aware of the patient's housing concern and working to address these issues. Admission and Anticipated Discharge Date Admission Date: December 28, 2019 Supervising Physician Co-Signing Physician Notes Resident Physician Supervision Note: I independently interviewed and examined the patient and verified the valencia history and physical, reviewed labs and image studies, discussed the case with the resident Dr. Mcdonald and agree with the findings and care plan. Subjective Mr. Jean is doing well today. He reports no new symptoms and says he feels good. He is worried about his living situation, as he thinks he might lose his apartment if he doesn't go home soon. Case management have been consulted and are working on finding placement for patient as rehab facility, as per PT recommendation. They will also address his living situation. Review of Systems Review of Systems: Constitutional: Denies fever, chills, Cardiovascular: Denies Chest pain Respiratory: Denies shortness of breath, cough, difficulty breathing Gastrointestinal: Denies abdominal pain, nausea, vomiting, constipation, diarrhea Genitourinary: Denies urinary symptoms including dysuria Musculoskeletal: Denies weakness Neurological: Denies headache Physical Exam Constitutional: WD/WN, vitals as above Respiratory: normal respiratory effort, lungs clear to auscultation Auscultation: lungs clear to auscultation bilaterally Cardiovascular: RRR, no murmur, no edema Gastrointestinal (Abdomen): normal bowel sounds, soft, nontender, no hepato splenomegaly Musculoskeletal: Extremities: extremities normal to inspection Some weakness of RUE, patient says has been present for some time Psychiatric: A+Ox3, euthymic affect Results & Data Results & Data ([facility]) Vital Signs (Past 12 Hours) Vital Signs Temp Pulse Pulse Resp BP Pulse Ox 12/31/19 11:00 36.9 C 78 18 100/53 L 95 12/31/19 07:59 37.3 C 74 18 119/70 97 12/31/19 07:00 71 12/31/19 03:24 37.5 C 77 20 106/62 97 Resident Activity Tracking Resident Involvement: Resident Care Provided Care Provided: Adult [facility]
[2020-01-01 06:00] LABS: Hemoglobin 8.9 g/dL (14.0-18.0); Mean Corpuscular Hemoglobin 37.7 pg (25-34); Mean Corpuscular Hgb Conc 35.6 g/dL (32-36); Mean Corpuscular Volume 105.9 fL (80-100); RDW Coefficient of Variation 15.8 % (11.5-14.5); RDW Standard Deviation 60.6 fL (36.4-46.3); Red Blood Count 2.36 M/uL (4.7-6.1); White Blood Count 6.37 K/uL (4.8-10.8)
[2020-01-01 06:15] LABS: Mean Platelet Volume 9.6 fL (7.4-10.4); Platelet Count 88 K/uL (130-400)
[2020-01-01 06:22] LABS: Basophils # (auto) 0.03 K/uL (0-0.2); Basophils % (auto) 0.5 %; Echinocytes 1+; Eosinophils % (auto) 4.7 %; Immature Granulocytes # (auto) 0.01 K/uL (0.00-0.02); Immature Granulocytes % (auto) 0.2 %; Lymphocytes # (auto) 1.01 K/uL (1.2-3.4); Lymphocytes % (auto) 15.9 %; Monocytes % (auto) 14.1 %; Neutrophils # (auto) 4.12 K/uL (1.4-6.5); Neutrophils % (auto) 64.6 %; Target Cells 1+
[2020-01-01 06:43] LABS: Albumin Globulin Ratio 0.7 (0.9-2); Albumin Level 2.2 gm/dl (3.4-5.0); BUN Creatinine Ratio 14.1 (10-20); Bilirubin,Total 5.7 mg/dl (0.2-1); Calcium 8.8 mg/dl (8.5-10.1); Est GFR (Non-African American) 66.5; Globulin 3.2 gm/dl (2.5-4.0); Potassium 3.7 mmol/L (3.5-5.1); Total Protein 5.4 gm/dl (6.4-8.2)
--- NOTE | 2020-01-01 07:18 | Hospitalist Progress Note ---
Date of Service January 01, 2020 Assessment & Plan (1) Altered mental status: Ted Eason is a 69-year-old male with past medical history hypertension, COPD, alcoholism with hepatic cirrhosis/portal hypertension/esophageal varices, thrombocytopenia, anemia presents from outside hospital for management of alcohol withdrawal. Altered mental status - metabolic/hepatic Similar presentation during September 2019 admission at [facility]. confusion during which was confused but did not have a congruent ethyl alcohol (4mg/dL). Mentation improving. Unable to obtain collateral history of continued alcohol use. Patient report inconsistent h/o last drink and amount of alcohol use. No metabolic acidosis or anion gap No sign of infection. Suspect hepatic encephalopathy in setting of alcohol use. -GI consult GI consult recommendations: encourage BM with lactulose, replete K, check AFP. IV thiamine 100 mg twice daily and IV folate 1 mg daily. Hepatic cirrhosis/portal hypertension/esophageal varices/elevated liver enzymes and bilirubin Secondary to alcohol abuse. AST ALT ratio indicative of alcoholic pt Holding nadolol 40 mg daily. To resume in am. Reviewed the outpatient notes it appears patient has declined any sort of GI follow-up Thrombocytopenia/Macrocytic anemia -Hemoglobin decreased slightly, 10.3-94, Platelets 72 on admission. Secondary to alcoholism. Stable, near baseline Daily CBC. Macrocytic anemia is stable. Hypokalemia Potassium 3.4 today Will trend daily and replete as necessary Prolonged QTc -EKG: NSR with prolonged QT/QTc 452/491 -replete K as needed Hypophosphatemia -repletion as needed Hypertension Holding patient's amlodipine 5 mg, nadolol 40 mg since hypotensive on admission. COPD Stable Continue Symbicort twice daily, Increase Ellipta daily once able FEN/GI: No fluids. Continue NPO DVT prophylaxis: Heparin SQ Full code Dispo: PT recommends physical therapy placement. Case management has been notified and is seeking SNF placement vs discharge to back to patient's apartment with home PT Admission and Anticipated Discharge Date Admission Date: December 28, 2019 Subjective Ted Eason is a 69-year-old male with past medical history hypertension, COPD, alcoholism with hepatic cirrhosis/portal hypertension/esophageal varices, thrombocytopenia, anemia presents from outside hospital for management of alcohol withdrawal. No acute events overnight. Has not required PRN Ativan since hospitalization. No concerns today. Denies tremors, increased anxiety, generalized shaking/seizures, chest pain or palpitations. Review of Systems Constitutional: no fever, no chills and no body aches Eyes: no worsening vision Ear, Nose, Mouth, Throat: no hearing loss Respiratory: no dyspnea Cardiovascular: no chest pain Gastrointestinal: no nausea and no vomiting Physical Exam Constitutional: WD/WN, vitals as above no acute distress Respiratory: normal respiratory effort, lungs clear to auscultation Cardiovascular: RRR, no murmur, no edema Gastrointestinal (Abdomen): normal bowel sounds, soft, nontender, no hep atosplenomegaly Skin: no rashes, warm and dry Neurologic: Motor/Sensory: no tremor Psychiatric: A+Ox3, euthymic affect Results & Data Results & Data ([facility]) Vital Signs (Past 12 Hours) Vital Signs Temp Pulse Pulse Resp BP BP Pulse Ox 01/01/20 04:13 37.0 C 69 18 111/62 95 01/01/20 01:41 67 12/31/19 23:27 37.4 C 67 18 100/61 97 12/31/19 19:36 37.1 C 77 20 112/68 98 CBC w Diff Results Results CBC w Diff: RBC 2.36 M/uL (4.7-6.1) L 01/01/20 WBC 6.37 K/uL (4.8-10.8) 01/01/20 Hgb 8.9 g/dL (14.0-18.0) L 01/01/20 Hct 25.0 % (42-52) L 01/01/20 MCV 105.9 fL (80-100) H 01/01/20 MCH 37.7 pg (25-34) H 01/01/20 MCHC 35.6 g/dL (32-36) 01/01/20 RDW Standard Deviation 60.6 fL (36.4-46.3) H 01/01/20 RDW Coefficient of Variation 15.8 % (11.5-14.5) H 01/01/20 Plt Count 88 K/uL (130-400) L 01/01/20 MPV 9.6 fL (7.4-10.4) 01/01/20 Neutrophils (%) (Auto) 64.6 % 01/01/20 Lymphocytes (%) (Auto) 15.9 % 01/01/20 Monocytes # (Auto) 0.90 K/uL (0.11-0.59) H 01/01/20 Eosinophils # (Auto) 0.30 K/uL (0-0.5) 01/01/20 Immature Granulocyte % (Auto) 0.2 % 01/01/20 Neutrophils # (Auto) 4.12 K/uL (1.4-6.5) 01/01/20 Lymphocytes # (Auto) 1.01 K/uL (1.2-3.4) L 01/01/20 Monocytes # (Auto) 0.90 K/uL (0.11-0.59) H 01/01/20 Eosinophils # (Auto) 0.30 K/uL (0-0.5) 01/01/20 Basophils # (Auto) 0.03 K/uL (0-0.2) 01/01/20 Immature Granulocyte # (Auto) 0.01 K/uL (0.00-0.02) 01/01/20 Echinocytes 1+ 01/01/20 Target Cells 1+ 01/01/20 Chemistry (BMP) Results BMP Results: Sodium 139 mmol/L (136-145) 01/01/20 Potassium 3.7 mmol/L (3.5-5.1) 01/01/20 Chloride 111 mmol/L (98-107) H 01/01/20 BUN 16 mg/dl (7-18) 01/01/20 Creatinine 1.11 mg/dl (0.6-1.4) 01/01/20 Glucose 95 mg/dl (70-99) 01/01/20 LFT Results Results Liver Function Test Results: ALT 36 U/L (12-78) 01/01/20 AST 48 U/L (15-37) H 01/01/20 Alkaline Phosphatase 107 U/L (45-117) 01/01/20 Total Protein 5.4 gm/dl (6.4-8.2) L 01/01/20 Albumin 2.2 gm/dl (3.4-5.0) L 01/01/20 Total Bilirubin 5.7 mg/dl (0.2-1) H 01/01/20
[2020-01-01] MEDS: LACTULOSE SYRUP 20 GM/30 ML UDC PO SCH ×3 (08:45→20:40)
[2020-01-01] MEDS: RIFAXIMIN 550 MG TABLET PO SCH ×2 (08:45→20:40)
[2020-01-01] MEDS: HEPARIN SOD 5,000 UNIT/0.5 ML VIAL SQ SCH ×2 (08:45→20:39)
[2020-01-01] MEDS: FOLIC ACID 1 MG in SYRINGE 9.8 ML IV SCH (08:46)
[2020-01-01] MEDS: THIAMINE HCL 100 MG in SYRINGE 9 ML IV SCH ×2 (08:46→20:40)
[2020-01-01] MEDS: MAGNESIUM OXIDE 400 MG TAB PO SCH (08:49)
--- NOTE | 2020-01-01 13:05 | Discharge Summary ---
Date of Service January 01, 2020 Admission HPI Per Admitting Provider 69-year-old male with past medical history hypertension, COPD, alcoholism with hepatic cirrhosis/portal hypertension/esophageal varices, thrombocytopenia, anemia presents as a direct admit from [facility] for alcohol withdrawal management. History collected from paperwork from outside hospital as patient is unable to provide history at this time. Patient presented to outside hospital for altered mental status, reported to be entering other people's apartments and was agitated. At outside hospital patient was given IV hydration along with a banana bag, IV Ativan. Transferred to our hospital for additional management. Outside hospital work-up: Pertinent labs: Hemoglobin 10.6, hematocrit 29.9, MCV 103.8, platelet 97, creatinine 1.51, T bili 10.9, potassium 2.8, alk phos 128, lipase 3232, AST 118, ammonia 46, lactic acid 2.1. ALT WNL 57, ethanol WNL 4 EKG: Normal sinus rhythm Chest x-ray: Hyperexpanded lungs without evidence of acute cardiopulmonary disease CT head: No acute intracranial abnormality. Moderate generalized volume loss and mild small vessel ischemic change. Admission Exam Per Admitting Provider Constitutional: + intoxicated appearing and + disheveled Eyes: + scleral abnormality (icteric ) Respiratory: normal respiratory effort; no labored breathing course breath sounds Cardiovascular: RRR, no murmur, no edema Gastrointestinal (Abdomen): normal bowel sounds, soft, nontender, no hepatosplenomegaly Skin: no rashes, warm and dry Psychiatric: Orientation: + not oriented x 3 confused, agitated at times Principal Diagnosis Alcohol Withdrawal Discharge Exam Constitutional WD/WN, vitals as above no acute distress Respiratory normal respiratory effort, lungs clear to auscultation Cardiovascular RRR, no murmur, no edema Gastrointestinal (Abdomen) normal bowel sounds, soft, nontender, no hepatosplenomegaly Skin no rashes, warm and dry Neurologic Motor/Sensory: no tremor Psychiatric A+Ox3, euthymic affect Discharge Data Allergies Allergy/AdvReac Type Severity Reaction Status Date / Time albuterol Allergy Mild eye Verified 11/07/19 18:32 swelling aspirin AdvReac Mild uset Verified 11/07/19 18:32 stomach Consultations 12/28/19 22:55 Consult Case Management - Discharge Planning Routine 12/29/19 01:12 Consult Gastroenterology Routine 12/29/19 10:39 HIM [Consult Health Information Management] Routine Hospital Course (1) Altered mental status: Ted Eason is a 69-year-old male with past medical history hypertension, COPD, alcoholism with hepatic cirrhosis/portal hypertension/esophageal varices, thrombocytopenia, anemia presented from outside hospital for management of alcohol withdrawal. He had a similar presentation during September 2019 admission at at [facility] with confusion and congruent ethyl alcohol level of 4 mg/dL at that time. During this hospitalization, he was started on AWSS protocol with Ativan and IV thiamine, IV folate and lactulose, but he did not require PRN Ativan throughout the course of his hospital stay. He did not have any tremors or seizures and has remained hemodynamically stable. He will be discharged back to his apartment with home PT/OT/nursing visits for appropriate outpatient rehabilitation regimen. Discharge Plan Discharge Items Reason For Visit: ALCOHOL WITHDRAWL,PANCREATITIS,AMS Follow-up/Referrals: Andressa Ballard, [Primary Care Provider] - Medications and DC Order Prescriptions: No Action cholecalciferol (vitamin D3) 50,000 unit capsule 50,000 units PO WEEKLY Qty: 8 RF: 0 ondansetron HCl 4 mg tablet 4 mg PO QID PRN (Reason: nausea and vomiting) Qty: 90 RF: 1 omeprazole 20 mg capsule,delayed release(DR/EC) 20 mg PO DAILY Qty: 30 RF: 5 Incruse Ellipta 62.5 mcg/actuation blister with device 1 puffs INH DAILY Qty: 30 RF: 5 fluticasone propion-salmeterol [Advair Diskus] 250-50 mcg/dose blister with device 1 puffs INH BID Qty: 14 RF: 2 magnesium oxide 400 mg (241.3 mg magnesium) tablet 400 mg PO DAILY RF: 0 folic acid 1 mg tablet 1 mg PO DAILY RF: 0 thiamine HCl (vitamin B1) 100 mg tablet 100 mg PO DAILY Qty: 30 RF: 4 nadolol 40 mg tablet 40 mg PO DAILY Qty: 30 RF: 2 amlodipine 5 mg tablet 5 mg PO DAILY RF: 0 Admission Data Admit Date/Time: 12/28/19 20:51 Attending Provider: Jennifer Padilla Admit Provider: Soraida Dong Primary Care Provider: Ricotta,Andressa M. Other Providers: Soraida Dong ; Guille Higgins
--- NOTE | 2020-01-01 14:46 | Hospitalist Progress Note ---
Date of Service January 01, 2020 Assessment & Plan (1) Alcohol withdrawal: Ted Eason is a 69-year-old male with past medical history hypertension, COPD, alcoholism with hepatic cirrhosis/portal hypertension/esophageal varices, thrombocytopenia, anemia presents from outside hospital for management of alcohol withdrawal. Altered mental status - metabolic/hepatic Similar presentation during September 2019 admission at [facility]. confusion during which was confused but did not have a congruent ethyl alcohol (4mg/dL). Patient report inconsistent h/o last drink and amount of alcohol use. No metabolic acidosis or anion gap No sign of infection. Suspect hepatic encephalopathy in setting of alcohol use. -GI consult - GI consult recommendations: encourage BM with lactulose, replete K, check AFP. IV thiamine 100 mg twice daily and IV folate 1 mg daily. - AWSS protocol - patient has not required any Ativan PRN throughout hospitalization - continues to do well without signs of anxiety, tremor, diaphoresis, unstable vital signs, or seizures - Mentation back to baseline. Hepatic cirrhosis/portal hypertension/esophageal varices/elevated liver enzymes and bilirubin Secondary to alcohol abuse. AST ALT ratio indicative of alcoholic pt Holding nadolol 40 mg daily Reviewed the outpatient notes it appears patient has declined any sort of GI follow-up Thrombocytopenia/Macrocytic anemia -Hemoglobin decreased slightly, 9.4 --> 8.9, Platelets 72 on admission. Secondary to alcoholism. Stable, near baseline Macrocytic anemia is stable - Will trend CBC Hypokalemia Potassium 3.7 today Will trend and replete as necessary Prolonged QTc -EKG: NSR with prolonged QT/QTc 452/491 -replete K as needed Hypophosphatemia -repletion as needed Hypertension Holding patient's amlodipine 5 mg, nadolol 40 mg since hypotensive on admission. COPD Stable Continue Symbicort twice daily, Increase Ellipta daily once able FEN/GI: No fluids. Continue NPO DVT prophylaxis: Heparin SQ Full code Dispo: Patient will be discharged to home health care - PT/OT/nursing. Case management has already arranged this. Patient is stable for discharge but does not have his apartment keys. His nephew will retrieve them tomorrow morning and will transport him back to his apartment tomorrow. Present on Admission?: Yes Admission and Anticipated Discharge Date Admission Date: December 28, 2019 Supervising Physician Co-Signing Physician Notes Resident Physician Supervision Note: I independently interviewed and examined the patient and verified the valencia history and physical, reviewed labs and image studies, discussed the case with the resident Dr. Melgar and agree with the findings and care plan. Subjective Ted Eason is a 69-year-old male with past medical history hypertension, COPD, alcoholism with hepatic cirrhosis/portal hypertension/esophageal varices, thrombocytopenia, anemia presents from outside hospital for management of alcohol withdrawal. He continues to be stable without any Ativan PRN during hospitalization. He denies symptoms of anxiety, tremor, palpitations, shortness of breath, seizures this morning. No acute concerns. Review of Systems Constitutional: no fever and no chills Respiratory: no cough and no dyspnea Cardiovascular: no chest pain and no palpitations Gastrointestinal: no nausea and no vomiting Neurologic: no syncope Psychiatric: no anxiety and no panic attacks Physical Exam Constitutional: WD/WN, vitals as above Eyes: PERRL, conjunctivae normal, anicteric sclerae Neck: normal visual inspection Respiratory: normal respiratory effort, lungs clear to auscultation Cardiovascular: RRR, no murmur, no edema Gastrointestinal (Abdomen): normal bowel sounds, soft, nontender, no he patosplenomegaly Skin: no rashes, warm and dry Neurologic: Motor/Sensory: no tremor Psychiatric: A+Ox3, euthymic affect Results & Data Results & Data ([facility]) Vital Signs (Past 12 Hours) Vital Signs Temp Pulse Resp BP BP Pulse Ox 01/01/20 11:30 36.5 C 68 18 113/68 98 01/01/20 07:33 37.1 C 71 18 130/62 96 01/01/20 04:13 37.0 C 69 18 111/62 95 CBC w Diff Results Results CBC w Diff: RBC 2.36 M/uL (4.7-6.1) L 01/01/20 WBC 6.37 K/uL (4.8-10.8) 01/01/20 Hgb 8.9 g/dL (14.0-18.0) L 01/01/20 Hct 25.0 % (42-52) L 01/01/20 MCV 105.9 fL (80-100) H 01/01/20 MCH 37.7 pg (25-34) H 01/01/20 MCHC 35.6 g/dL (32-36) 01/01/20 RDW Standard Deviation 60.6 fL (36.4-46.3) H 01/01/20 RDW Coefficient of Variation 15.8 % (11.5-14.5) H 01/01/20 Plt Count 88 K/uL (130-400) L 01/01/20 MPV 9.6 fL (7.4-10.4) 01/01/20 Neutrophils (%) (Auto) 64.6 % 01/01/20 Lymphocytes (%) (Auto) 15.9 % 01/01/20 Monocytes # (Auto) 0.90 K/uL (0.11-0.59) H 01/01/20 Eosinophils # (Auto) 0.30 K/uL (0-0.5) 01/01/20 Immature Granulocyte % (Auto) 0.2 % 01/01/20 Neutrophils # (Auto) 4.12 K/uL (1.4-6.5) 01/01/20 Lymphocytes # (Auto) 1.01 K/uL (1.2-3.4) L 01/01/20 Monocytes # (Auto) 0.90 K/uL (0.11-0.59) H 01/01/20 Eosinophils # (Auto) 0.30 K/uL (0-0.5) 01/01/20 Basophils # (Auto) 0.03 K/uL (0-0.2) 01/01/20 Immature Granulocyte # (Auto) 0.01 K/uL (0.00-0.02) 01/01/20 Echinocytes 1+ 01/01/20 Target Cells 1+ 01/01/20 Chemistry (BMP) Results BMP Results: Sodium 139 mmol/L (136-145) 01/01/20 Potassium 3.7 mmol/L (3.5-5.1) 01/01/20 Chloride 111 mmol/L (98-107) H 01/01/20 BUN 16 mg/dl (7-18) 01/01/20 Creatinine 1.11 mg/dl (0.6-1.4) 01/01/20 Glucose 95 mg/dl (70-99) 01/01/20 LFT Results Results Liver Function Test Results: ALT 36 U/L (12-78) 01/01/20 AST 48 U/L (15-37) H 01/01/20 Alkaline Phosphatase 107 U/L (45-117) 01/01/20 Total Protein 5.4 gm/dl (6.4-8.2) L 01/01/20 Albumin 2.2 gm/dl (3.4-5.0) L 01/01/20 Total Bilirubin 5.7 mg/dl (0.2-1) H 01/01/20 Resident Activity Tracking Resident Involvement: Resident Care Provided Care Provided: Adult Hospital Medicine (1) Alcohol withdrawal Qualified Code(s): F10.239 - Alcohol dependence with withdrawal, unspecified
--- NOTE | 2020-01-02 06:36 | Discharge Summary ---
Date of Service January 02, 2020 Admission HPI Per Admitting Provider 69-year-old male with past medical history hypertension, COPD, alcoholism with hepatic cirrhosis/portal hypertension/esophageal varices, thrombocytopenia, anemia presents as a direct admit from [facility] for alcohol withdrawal management. History collected from paperwork from outside hospital as patient is unable to provide history at this time. Patient presented to outside hospital for altered mental status, reported to be entering other people's apartments and was agitated. At outside hospital patient was given IV hydration along with a banana bag, IV Ativan. Transferred to our hospital for additional management. Outside hospital work-up: Pertinent labs: Hemoglobin 10.6, hematocrit 29.9, MCV 103.8, platelet 97, creatinine 1.51, T bili 10.9, potassium 2.8, alk phos 128, lipase 3232, AST 118, ammonia 46, lactic acid 2.1. ALT WNL 57, ethanol WNL 4 EKG: Normal sinus rhythm Chest x-ray: Hyperexpanded lungs without evidence of acute cardiopulmonary disease CT head: No acute intracranial abnormality. Moderate generalized volume loss and mild small vessel ischemic change. Admission Exam Per Admitting Provider Constitutional: + intoxicated appearing and + disheveled Eyes: + scleral abnormality (icteric ) Respiratory: normal respiratory effort; no labored breathing course breath sounds Cardiovascular: RRR, no murmur, no edema Gastrointestinal (Abdomen): normal bowel sounds, soft, nontender, no hepatosplenomegaly Skin: no rashes, warm and dry Psychiatric: Orientation: + not oriented x 3 confused, agitated at times Principal Diagnosis metabolic encephalopathy Discharge Exam General: A&Ox3. NAD. Cooperative. Ambulating with cane. HEENT: Atraumatic, normocephalic. EOMI. Adentulous. Pulm: CTAB. -wheezes, -rales, -rhonchi. Symmetrical chest rise. No increase work of breathing. No respiratory distress. Cardiac: RRR, -mrg. Radial pulses intact and symmetrical. No respiratory distress. Abdominal: Nontender, nondistended, soft. Discharge Data Allergies Allergy/AdvReac Type Severity Reaction Status Date / Time albuterol Allergy Mild eye Verified 11/07/19 18:32 swelling aspirin AdvReac Mild uset Verified 11/07/19 18:32 stomach Consultations 12/28/19 22:55 Consult Case Management - Discharge Planning Routine 12/29/19 01:12 Consult Gastroenterology Routine 12/29/19 10:39 HIM [Consult Health Information Management] Routine Hospital Course (1) Alcohol withdrawal: Ted Eason is a 69-year-old male with past medical history hypertension, COPD, alcoholism with hepatic cirrhosis/portal hypertension/esophageal varices, thrombocytopenia, anemia presents from outside hospital for management of acute altered mental status To Do After Discharge -f/u on alcohol cessation discussion -GI f/u scheduled given patient hx Altered mental status, likely due to encephalopathy, alcoholic vs. hepatic, resolved He was directed admitted to our service from an outside hospital ([facility]) for altered mental status. Similar presentation during September 2019 admission at [facility]; found confused but did not have a congruent ethyl alcohol (4mg/dL). Patient report (no drink in over a week) inconsistent h/o last drink and amount of alcohol use. CT head and cxr from outside hospital did not show acute processes. No metabolic acidosis or anion gap. No sign of infection. Suspected hepatic encephalopathy in setting of alcohol use. However, ammonia on admission not elevated at 17.6. Provided IV thiamine (high dose), IV folate, lactulose, and rifaximin. Repleted electrolytes. AFP wnl at 5.4. Normal kidney function. Coags elevated: PT 19, INR 1.9. Patient did not require any Ativan PRN throughout hospitalization - continued to do well without signs of anxiety, tremor, diaphoresis, unstable vital signs, or seizures. Prior to discharge, mentation back to baseline. Hepatic cirrhosis/portal hypertension/esophageal varices/elevated liver enzymes and bilirubin Admission vs. 01/01/20. AST 104->48. ALT 55->36. Alk phos 120->107. -T bili 10.1 on admission -> downtrended to 5.7. Secondary to alcohol abuse. AST ALT ratio indicative of alcoholic pt. Held nadolol 40 mg daily Reviewed the outpatient notes it appears patient had previously declined any sort of GI follow-up Thrombocytopenia/Macrocytic anemia -Hemoglobin decreased slightly, 9.4 --> 8.9, Platelets 72 on admission. Secondary to alcoholism. Stable, near baseline -Macrocytic anemia stable -Trended CBC Hypokalemia -2.8 on admission -repleted as necessary Prolonged QTc -EKG: NSR with prolonged QT/QTc 452/491 -repleted K as needed Hypophosphatemia -0.9 on AM of day 2 -repleted as necessary Hypertension -Held patient's amlodipine 5 mg, nadolol 40 mg since hypotensive on admission. COPD Stable Continued Symbicort twice daily, and Ellipta daily FEN/GI: No fluids. Initially NPO, transitioned to regular diet DVT prophylaxis: Heparin SQ Full code Dispo: med/surg Patient will be discharged to home w/ home health care - PT/OT/nursing. Total Time Total Time Spent Total Time Spent (In Minutes): <30 Discharge Plan Discharge Items Patient Disposition: Home - Home Health Services Reason For Visit: ALCOHOL WITHDRAWL,PANCREATITIS,AMS Discharge Diagnosis: Alcohol Withdrawal Condition on Discharge: Good Activity: Resume your previous activity Non-emergency contact: Primary Care Provider and District Engineer Call non-emergency contact if: you have any medication questions, your symptoms worsen and you have a fever Follow-up/Referrals: Jono Miller DO [Physician] - Andressa Ballard DO [Primary Care Provider] - 01/06/20 8:20 am ([facility]) Diet: Heart Healthy Addtl Attending Provider Instructions: You were transferred to our hospital for concerns of alcohol withdrawal vs complications from liver problems, due to your altered level of awareness. During this hospitalization, we replenished your vitamin levels of thiamine and folate, which are generally abnormal in the setting of chronic alcohol use. We also gave you lactulose and rifaximin which is used to treat confusion from liver problems. You did not require any medications for tremors, seizures (full- body shakes) or anxiety. You otherwise remained stable and well, throughout your stay with us at the hospital and you returned back to your normal level of alertness. We will be discharging you back to your apartment with home health visits for physical therapy. A followup appointment has been made for you to see a primary care doctor and GI doctor within 1-2 weeks. You will be called with information about the appointments. Home health is scheduled to have their first visit at your home tomorrow. Return precautions If you develop any new or worsening symptoms including new confusion, fever, chills, sweats, chest pain, chest pressure, difficulty breathing, uncontrolled nausea/vomiting, rash, wheezing, passing out or nearly passing out, bleeding, black/bloody bowel movements, or other new or concerning symptoms please call your primary care physician, or call 911 for re-evaluation in the emergency department if you are very concerned. Pending Studies at Discharge: No Stand-Alone Forms: My [facility], Smoking Cessation Medications and DC Order Prescriptions: Continued cholecalciferol (vitamin D3) 50,000 unit capsule 50,000 units PO WEEKLY Qty: 8 RF: 0 ondansetron HCl 4 mg tablet 4 mg PO QID PRN (Reason: nausea and vomiting) Qty: 90 RF: 1 omeprazole 20 mg capsule,delayed release(DR/EC) 20 mg PO DAILY Qty: 30 RF: 5 fluticasone propion-salmeterol [Advair Diskus] 250-50 mcg/dose blister with device 1 puffs INH BID Qty: 14 RF: 2 magnesium oxide 400 mg (241.3 mg magnesium) tablet 400 mg PO DAILY RF: 0 folic acid 1 mg tablet 1 mg PO DAILY RF: 0 thiamine HCl (vitamin B1) 100 mg tablet 100 mg PO DAILY Qty: 30 RF: 4 nadolol 40 mg tablet 40 mg PO DAILY Qty: 30 RF: 2 amlodipine 5 mg tablet 5 mg PO DAILY RF: 0 Discontinued Incruse Ellipta 62.5 mcg/actuation blister with device 1 puffs INH DAILY Qty: 30 RF: 5 Discharge Orders: Discharge Order (Routine); Ordered 01/02/20 Ordered By: Rod Estevez/Other Patient Handouts: Alcoholism Resources, Alcohol Addiction, Addiction: Getting Help Admission Data Admit Date/Time: 12/28/19 20:51 Attending Provider: Randy Scanlon Admit Provider: Soriada Dong Primary Care Provider: Andressa Ballard Other Providers: Soraida Dong ; Guille Higgins ; Jennifer Padilla Other Interventions: Discharge Summary Assessment (RN) Last Done: 01/02/20 10:01 DC Date/Time DO NOT enter until pt leaves facility: 01/02/20 12:13 Supervising Physician Co-Signing Physician Notes I personally examined the patient and verified all valencia points of history and exam, discussed case, and agree with decision making with Dr Johnson. stable for home and wants to go home. reiterated critical need to totally abstain from EtOH - pt expressed understanding, son did far more vitlas noted nad heent nc at mmm visibly jaundiced. gait stable. encephalopathy- now resolved. cirrhosis/hyperbilirubinemia - absolute EtOH cessation. otherwise as above stable for home as above Resident Activity Tracking Resident Involvement: Resident Care Provided Care Provided: Adult Hospital Medicine
[2020-01-02] MEDS: LACTULOSE SYRUP 20 GM/30 ML UDC PO SCH (08:37)
[2020-01-02] MEDS: HEPARIN SOD 5,000 UNIT/0.5 ML VIAL SQ SCH (08:39)
[2020-01-02] MEDS: FOLIC ACID 1 MG in SYRINGE 9.8 ML IV SCH (08:39)
[2020-01-02] MEDS: RIFAXIMIN 550 MG TABLET PO SCH (08:39)
[2020-01-02] MEDS: MAGNESIUM OXIDE 400 MG TAB PO SCH (08:40)
[2020-01-02] MEDS: THIAMINE HCL 100 MG in SYRINGE 9 ML IV SCH (08:40)
--- NOTE | 2020-01-02 19:38 | Billing Data ---
Date of Service January 02, 2020 Coding Level of Care Code D/C Day Management <30 mins
== END 2020-01-02 12:13 | disposition home health service (06) | DRG 896 ==
LOC: 2N 20:51 → SUATTDRO 20:51

== ENCOUNTER 2020-05-09 10:18 | Inpatient (IN) ==
[2020-05-09] MEDS ORDERED: SODIUM CHLORIDE 0.9% 1000ML 1,000 ML IV ONE ×2 (10:30→11:30)
[2020-05-09] MEDS ORDERED: MULTI-VITAMIN INFUSION 10 ML, THIAMINE HCL 100 MG, FOLIC ACID 1 MG in SODIUM CHLORIDE 0... IV ONE (10:30)
[2020-05-09] MEDS ORDERED: cloNIDine HCL 0.3 MG/24 HR TRANSDERM SYS TD STA (10:30)
[2020-05-09] MEDS ORDERED: LORazepam 2 MG/4 ML VIAL IV STA (10:33)
[2020-05-09] MEDS ORDERED: HALOPERIDOL LACTATE 5 MG/ML 1 ML VIAL IV STA (10:36)
[2020-05-09] MEDS ORDERED: LORazepam 2 MG/ML VIAL (IM USE) ONE (10:39)
[2020-05-09] MEDS ORDERED: HALOPERIDOL LACTATE 5 MG/ML 1 ML VIAL ONE (10:40)
[2020-05-09] MEDS ORDERED: SODIUM CHLORIDE 0.9% 250 ML IV PRN ×3 (11:15→12:14)
[2020-05-09] MEDS ORDERED: PIPERACILL/TAZOBAC CONSULT ACTIVE PRN (11:16)
[2020-05-09] MEDS ORDERED: PIPERACILLIN/TAZOBACTAM 4.5 GM/120 ML BAG IV ONE (11:16)
[2020-05-09] MEDS ORDERED: PANTOPRAZOLE BOLUS/DRIP 1 EA IV STA (11:16)
[2020-05-09] MEDS ORDERED: OCTREOTIDE ACETATE 100 MCG in SYRINGE 9 ML IV STA (11:16)
[2020-05-09] MEDS ORDERED: DEXTROSE 50% 50 ML SYRINGE IV STA (11:16)
[2020-05-09] MEDS ORDERED: PANTOprazole 80 MG in DEXTROSE 5% 100 ML IV ONE (11:16)
[2020-05-09] MEDS ORDERED: levoFLOXacin/D5W 750 MG/150 ML BAG IV STA (11:16)
[2020-05-09 11:26] LABS: iSTAT Creatinine 1.5 mg/dl (0.6-1.3); iSTAT Hemoglobin 6.5 g/dl (14.0-18.0); iSTAT Ionized Calcium 1.2 mmol/l (1.12-1.32); iSTAT Potassium 3.7 mmol/L (3.3-5.0)
[2020-05-09] MEDS ORDERED: OCTREOTIDE ACETATE 500 MCG in 0.9 % SODIUM CHLORIDE 100 ML IV SCH ×3 (11:30→12:45)
--- NOTE | 2020-05-09 11:45 | Emergency Department Note ---
History of Present Illness General Stated complaint: Illness Time Seen by Provider: 05/09/20 10:21 Source: family (nephew), EMS, RN notes reviewed and old records reviewed Mode of arrival: EMS Limitations: altered mental status History of Present Illness Provider complaint: Found down Treatments prior to arrival: none This 70-year-old male who was found at home.on the floor. The patient was last seen normal approximately 48 hours ago. He was found by home health nurse aide on the floor mumbling. The patient is covered in bruises from head to toe. I contacted patient's nephew Ruben . Home Medications Medication Instructions Recorded Confirmed Type folic acid 1 mg tablet 1 mg PO DAILY #30 tab 02/08/20 05/09/20 Rx levalbuterol tartrate 45 2 inh INHALATION Q6H PRN #15 g 02/08/20 05/09/20 Rx mcg/actuation aerosol inhaler nadolol 40 mg tablet 40 mg PO DAILY #30 tab 02/08/20 05/09/20 Rx omeprazole 20 mg capsule,delayed 20 mg PO DAILY #30 cap 02/08/20 05/09/20 Rx release thiamine HCl (vitamin B1) 100 mg 100 mg PO DAILY #30 tab 02/08/20 05/09/20 Rx tablet magnesium oxide 400 mg (241.3 mg 400 mg PO DAILY #30 tab 03/14/20 05/09/20 Rx magnesium) tablet fluticasone propion-salmeterol 1 inh INH BID 05/09/20 05/09/20 History [Advair Diskus] Allergies Allergy/AdvReac Type Severity Reaction Status Date / Time albuterol Allergy Mild eye Verified 05/09/20 11:45 swelling aspirin AdvReac Mild uset Verified 05/09/20 11:45 stomach Past Med/Surg History Medical History (Updated 05/10/20 @ 08:44 by Fidencio Campbell MD) Abdominal aortic aneurysm (07/2019) Acid reflux Atherosclerotic cardiovascular disease Cholelithiasis COPD (chronic obstructive pulmonary disease) Emphysema of lung Esophageal 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 Hepatic cirrhosis Hypertension Portal hypertension Splenomegaly Thiamine deficiency Thrombocytopenia Surgical History S/P hernia repair Family History Denies family history of Ovarian cancer Prostate cancer Myocardial infarction Breast cancer Colorectal cancer Social History Smoking Status: Never smoker Age Quit Using Tobacco: 38; packs per day: 3; Hx Alcohol Use: Yes Hx Substance Use: No (aox1, n/a) Preferred Language: Persian Communication Ability: Unable Visual Impairment: No Limitations Hearing Ability: Hard of Hearing Rail Grinder Required: No Beliefs That Will Affect Care: None marital status: Current Living Situation: Alone Current Living Situation Comment: Lives in [facility] current occupational status: retired Feels Safe at Home: Declines to Answer Childhood Exposure to Second-Hand Smoke: No caffeine: Yes (Coffee x 1/2 cup per day. ) during the past year weight has: remained stable Dental Care, Regularly: No Physical Activity Frequency: Daily Seatbelt Use: never Sunscreen Use: No Assistive Devices: None Review of Systems Unobtainable due to reduced consciousness Physical Exam Vital Signs Vital Signs - 24 hr 05/09/20 10:31 05/09/20 10:36 05/09/20 10:40 Temperature Temperature Source Pulse Rate 90 89 92 H Pulse Rate from SpO2 Sensor 89 90 90 Pulse Rhythm Pulse Strength Respiratory Rate 19 19 18 Respiratory Effort / Characteristics Respiratory Depth Respiratory Pattern Blood Pressure 122/80 Blood Pressure Mean 92 Blood Pressure Position Pulse Oximetry 100 100 100 Oxygen Delivery Method Nasal Cannula Nasal Cannula Nasal Cannula Oxygen Flow Rate 2 2 2 Sepsis Recent Fever Within 48 Hours Sepsis New/Unexplained Change in Mental Status Sepsis Action Taken by Nursing 05/09/20 10:41 05/09/20 10:45 05/09/20 10:46 Temperature 34.4 C L Temperature Source Rectal Pulse Rate 86 93 H Pulse Rate from SpO2 Sensor 83 92 H Pulse Rhythm Pulse Strength Respiratory Rate 14 18 18 Respiratory Effort / Characteristics Non-Labored Spontaneous Respiratory Depth Normal Respiratory Pattern Regular Blood Pressure 109/58 L 88/51 L Blood Pressure Mean 75 82 Blood Pressure Position Pulse Oximetry 93 100 100 Oxygen Delivery Method Room Air Nasal Cannula Nasal Cannula Oxygen Flow Rate 2 2 Sepsis Recent Fever Within 48 Hours No Sepsis New/Unexplained Change in Mental Status Yes Sepsis Action Taken by Nursing Physician Notified 05/09/20 10:47 05/09/20 10:50 05/09/20 10:55 Temperature Temperature Source Pulse Rate 90 92 H 89 Pulse Rate from SpO2 Sensor 91 H 91 H 91 H Pulse Rhythm Pulse Strength Respiratory Rate 18 18 17 Respiratory Effort / Characteristics Respiratory Depth Respiratory Pattern Blood Pressure 85/59 L 109/68 90/50 L Blood Pressure Mean 62 80 69 Blood Pressure Position Pulse Oximetry 100 100 100 Oxygen Delivery Method Nasal Cannula Nasal Cannula Nasal Cannula Oxygen Flow Rate 2 2 2 Sepsis Recent Fever Within 48 Hours Sepsis New/Unexplained Change in Mental Status Sepsis Action Taken by Nursing 05/09/20 11:00 05/09/20 11:05 05/09/20 11:06 Temperature Temperature Source Pulse Rate 87 88 89 Pulse Rate from SpO2 Sensor 89 87 89 Pulse Rhythm Pulse Strength Respiratory Rate 17 18 17 Respiratory Effort / Characteristics Respiratory Depth Respiratory Pattern Blood Pressure 79/68 L 77/50 L Blood Pressure Mean 73 58 Blood Pressure Position Pulse Oximetry 100 100 100 Oxygen Delivery Method Nasal Cannula Nasal Cannula Nasal Cannula Oxygen Flow Rate 2 2 2 Sepsis Recent Fever Within 48 Hours Sepsis New/Unexplained Change in Mental Status Sepsis Action Taken by Nursing 05/09/20 11:10 05/09/20 11:11 05/09/20 11:14 Temperature Temperature Source Pulse Rate 90 93 H Pulse Rate from SpO2 Sensor 92 H 93 H Pulse Rhythm Pulse Strength Respiratory Rate 17 17 Respiratory Effort / Characteristics Non-Labored Spontaneous Accessory Muscle Use Respiratory Depth Respiratory Pattern Blood Pressure 114/64 Blood Pressure Mean 81 Blood Pressure Position Pulse Oximetry 100 100 94 Oxygen Delivery Method Nasal Cannula Nasal Cannula Room Air Oxygen Flow Rate 2 2 Sepsis Recent Fever Within 48 Hours Sepsis New/Unexplained Change in Mental Status Sepsis Action Taken by Nursing 05/09/20 11:15 05/09/20 11:16 05/09/20 11:20 Temperature Temperature Source Pulse Rate 93 H 91 H 92 H Pulse Rate from SpO2 Sensor 94 H 93 H 93 H Pulse Rhythm Pulse Strength Respiratory Rate 21 18 18 Respiratory Effort / Characteristics Respiratory Depth Respiratory Pattern Blood Pressure 99/41 L Blood Pressure Mean 64 Blood Pressure Position Pulse Oximetry 100 100 100 Oxygen Delivery Method Nasal Cannula Nasal Cannula Nasal Cannula Oxygen Flow Rate 2 2 2 Sepsis Recent Fever Within 48 Hours Sepsis New/Unexplained Change in Mental Status Sepsis Action Taken by Nursing 05/09/20 11:22 05/09/20 11:25 05/09/20 11:30 Temperature Temperature Source Pulse Rate 92 H 91 H 93 H Pulse Rate from SpO2 Sensor 93 H 90 94 H Pulse Rhythm Pulse Strength Respiratory Rate 18 20 19 Respiratory Effort / Characteristics Respiratory Depth Respiratory Pattern Blood Pressure 108/83 95/57 L Blood Pressure Mean 92 81 Blood Pressure Position Pulse Oximetry 100 100 100 Oxygen Delivery Method Nasal Cannula Nasal Cannula Nasal Cannula Oxygen Flow Rate 2 2 2 Sepsis Recent Fever Within 48 Hours Sepsis New/Unexplained Change in Mental Status Sepsis Action Taken by Nursing 05/09/20 11:31 05/09/20 11:35 05/09/20 11:37 Temperature Temperature Source Pulse Rate 95 H 95 H 94 H Pulse Rate from SpO2 Sensor 95 H 95 H 94 H Pulse Rhythm Pulse Strength Respiratory Rate 18 17 17 Respiratory Effort / Characteristics Respiratory Depth Respiratory Pattern Blood Pressure 72/42 L 102/59 L Blood Pressure Mean 45 88 Blood Pressure Position Pulse Oximetry 100 100 100 Oxygen Delivery Method Nasal Cannula Nasal Cannula Nasal Cannula Oxygen Flow Rate 2 2 2 Sepsis Recent Fever Within 48 Hours Sepsis New/Unexplained Change in Mental Status Sepsis Action Taken by Nursing 05/09/20 11:38 05/09/20 11:40 05/09/20 11:44 Temperature Temperature Source Pulse Rate 89 93 H 92 H Pulse Rate from SpO2 Sensor 92 H 92 H 93 H Pulse Rhythm Pulse Strength Respiratory Rate 17 18 16 Respiratory Effort / Characteristics Respiratory Depth Respiratory Pattern Blood Pressure 66/46 L 88/59 L Blood Pressure Mean 50 62 Blood Pressure Position Pulse Oximetry 100 100 98 Oxygen Delivery Method Nasal Cannula Nasal Cannula Nasal Cannula Oxygen Flow Rate 2 2 2 Sepsis Recent Fever Within 48 Hours Sepsis New/Unexplained Change in Mental Status Sepsis Action Taken by Nursing 05/09/20 11:46 05/09/20 12:06 05/09/20 12:10 Temperature Temperature Source Pulse Rate 94 H 97 H Pulse Rate from SpO2 Sensor 95 H 97 H Pulse Rhythm Pulse Strength Respiratory Rate 20 20 Respiratory Effort / Characteristics Respiratory Depth Respiratory Pattern Blood Pressure 95/53 L Blood Pressure Mean 64 57 Blood Pressure Position Pulse Oximetry 98 96 100 Oxygen Delivery Method Nasal Cannula Nasal Cannula Nasal Cannula Oxygen Flow Rate 2 2 2 Sepsis Recent Fever Within 48 Hours Sepsis New/Unexplained Change in Mental Status Sepsis Action Taken by Nursing 05/09/20 12:11 05/09/20 12:15 05/09/20 12:20 Temperature Temperature Source Pulse Rate 102 H 103 H 101 H Pulse Rate from SpO2 Sensor 102 H 103 H 103 H Pulse Rhythm Pulse Strength Respiratory Rate 21 16 14 Respiratory Effort / Characteristics Respiratory Depth Respiratory Pattern Blood Pressure 108/65 Blood Pressure Mean 55 82 Blood Pressure Position Pulse Oximetry 100 100 100 Oxygen Delivery Method Nasal Cannula Nasal Cannula Nasal Cannula Oxygen Flow Rate 2 2 2 Sepsis Recent Fever Within 48 Hours Sepsis New/Unexplained Change in Mental Status Sepsis Action Taken by Nursing 05/09/20 12:21 05/09/20 12:25 05/09/20 12:30 Temperature Temperature Source Pulse Rate 100 H 102 H 97 H Pulse Rate from SpO2 Sensor 103 H 101 H 98 H Pulse Rhythm Pulse Strength Respiratory Rate 18 21 16 Respiratory Effort / Characteristics Respiratory Depth Respiratory Pattern Blood Pressure 102/85 108/61 97/63 L Blood Pressure Mean 90 77 69 Blood Pressure Position Pulse Oximetry 97 100 100 Oxygen Delivery Method Nasal Cannula Nasal Cannula Nasal Cannula Oxygen Flow Rate 2 2 2 Sepsis Recent Fever Within 48 Hours Sepsis New/Unexplained Change in Mental Status Sepsis Action Taken by Nursing 05/09/20 12:35 05/09/20 12:40 05/09/20 12:45 Temperature Temperature Source Pulse Rate 97 H 97 H 98 H Pulse Rate from SpO2 Sensor 97 H 96 H 98 H Pulse Rhythm Pulse Strength Respiratory Rate 19 16 20 Respiratory Effort / Characteristics Respiratory Depth Respiratory Pattern Blood Pressure 102/66 102/59 L 103/57 L Blood Pressure Mean 75 64 69 Blood Pressure Position Pulse Oximetry 100 100 100 Oxygen Delivery Method Nasal Cannula Nasal Cannula Nasal Cannula Oxygen Flow Rate 2 2 2 Sepsis Recent Fever Within 48 Hours Sepsis New/Unexplained Change in Mental Status Sepsis Action Taken by Nursing 05/09/20 12:50 05/09/20 12:55 05/09/20 13:00 Temperature 34.1 C L Temperature Source Rectal Pulse Rate 92 H 91 H 90 Pulse Rate from SpO2 Sensor 93 H 94 H 92 H Pulse Rhythm Regular Pulse Strength Normal Respiratory Rate 18 19 14 Respiratory Effort / Characteristics Respiratory Depth Respiratory Pattern Blood Pressure 95/61 L 104/53 L 90/54 L Blood Pressure Mean 69 70 67 Blood Pressure Position Lying Pulse Oximetry 100 100 100 Oxygen Delivery Method Nasal Cannula Nasal Cannula Nasal Cannula Oxygen Flow Rate 2 2 2 Sepsis Recent Fever Within 48 Hours Sepsis New/Unexplained Change in Mental Status Sepsis Action Taken by Nursing 05/09/20 13:05 05/09/20 13:08 05/09/20 13:10 Temperature 34.1 C L Temperature Source Rectal Pulse Rate 93 H 92 H 94 H Pulse Rate from SpO2 Sensor 95 H 93 H Pulse Rhythm Regular Pulse Strength Normal Respiratory Rate 24 22 17 Respiratory Effort / Characteristics Respiratory Depth Respiratory Pattern Blood Pressure 102/52 L 98/59 L 98/59 L Blood Pressure Mean 83 72 76 Blood Pressure Position Lying Pulse Oximetry 100 100 100 Oxygen Delivery Method Nasal Cannula Nasal Cannula Oxygen Flow Rate 2 2 2 Sepsis Recent Fever Within 48 Hours Sepsis New/Unexplained Change in Mental Status Sepsis Action Taken by Nursing 05/09/20 13:15 05/09/20 13:20 05/09/20 13:21 Temperature Temperature Source Pulse Rate 90 93 H 90 Pulse Rate from SpO2 Sensor 90 93 H 91 H Pulse Rhythm Pulse Strength Respiratory Rate 22 17 18 Respiratory Effort / Characteristics Respiratory Depth Respiratory Pattern Blood Pressure 109/55 L 115/54 L Blood Pressure Mean 74 67 Blood Pressure Position Pulse Oximetry 100 100 100 Oxygen Delivery Method Nasal Cannula Nasal Cannula Nasal Cannula Oxygen Flow Rate 2 2 2 Sepsis Recent Fever Within 48 Hours Sepsis New/Unexplained Change in Mental Status Sepsis Action Taken by Nursing 05/09/20 13:23 05/09/20 13:25 05/09/20 13:30 Temperature 34.8 C L Temperature Source Rectal Pulse Rate 99 H 89 94 H Pulse Rate from SpO2 Sensor 90 95 H Pulse Rhythm Regular Pulse Strength Normal Respiratory Rate 20 18 22 Respiratory Effort / Characteristics Respiratory Depth Respiratory Pattern Blood Pressure 103/72 124/70 133/54 L Blood Pressure Mean 82 84 77 Blood Pressure Position Lying Pulse Oximetry 100 100 100 Oxygen Delivery Method Nasal Cannula Nasal Cannula Oxygen Flow Rate 2 2 2 Sepsis Recent Fever Within 48 Hours Sepsis New/Unexplained Change in Mental Status Sepsis Action Taken by Nursing 05/09/20 13:35 05/09/20 13:40 05/09/20 13:45 Temperature Temperature Source Pulse Rate 94 H 96 H 98 H Pulse Rate from SpO2 Sensor 93 H 96 H 98 H Pulse Rhythm Pulse Strength Respiratory Rate 24 19 22 Respiratory Effort / Characteristics Respiratory Depth Respiratory Pattern Blood Pressure 102/58 L 128/64 107/61 Blood Pressure Mean 86 85 73 Blood Pressure Position Pulse Oximetry 100 100 100 Oxygen Delivery Method Nasal Cannula Nasal Cannula Nasal Cannula Oxygen Flow Rate 2 2 2 Sepsis Recent Fever Within 48 Hours Sepsis New/Unexplained Change in Mental Status Sepsis Action Taken by Nursing 05/09/20 13:50 05/09/20 13:53 05/09/20 13:55 Temperature 34.6 C L Temperature Source Rectal Pulse Rate 93 H 91 H 99 H Pulse Rate from SpO2 Sensor 93 H 100 H Pulse Rhythm Regular Pulse Strength Normal Respiratory Rate 25 H 21 18 Respiratory Effort / Characteristics Respiratory Depth Respiratory Pattern Blood Pressure 130/56 L 111/48 L Blood Pressure Mean 70 69 Blood Pressure Position Lying Pulse Oximetry 100 100 100 Oxygen Delivery Method Nasal Cannula Nasal Cannula Oxygen Flow Rate 2 2 2 Sepsis Recent Fever Within 48 Hours Sepsis New/Unexplained Change in Mental Status Sepsis Action Taken by Nursing 05/09/20 13:56 05/09/20 14:00 05/09/20 14:05 Temperature Temperature Source Pulse Rate 91 H Pulse Rate from SpO2 Sensor 99 H 97 H 91 H Pulse Rhythm Pulse Strength Respiratory Rate 17 17 19 Respiratory Effort / Characteristics Respiratory Depth Respiratory Pattern Blood Pressure 71/62 L 108/62 111/48 L Blood Pressure Mean 66 77 66 Blood Pressure Position Pulse Oximetry 100 100 100 Oxygen Delivery Method Nasal Cannula Nasal Cannula Nasal Cannula Oxygen Flow Rate 2 2 2 Sepsis Recent Fever Within 48 Hours Sepsis New/Unexplained Change in Mental Status Sepsis Action Taken by Nursing 05/09/20 14:10 05/09/20 14:15 05/09/20 14:20 Temperature Temperature Source Pulse Rate 93 H 95 H 92 H Pulse Rate from SpO2 Sensor 93 H 95 H 92 H Pulse Rhythm Pulse Strength Respiratory Rate 17 19 19 Respiratory Effort / Characteristics Respiratory Depth Respiratory Pattern Blood Pressure 109/58 L 105/58 L 106/64 Blood Pressure Mean 81 73 78 Blood Pressure Position Pulse Oximetry 100 100 100 Oxygen Delivery Method Nasal Cannula Nasal Cannula Nasal Cannula Oxygen Flow Rate 2 2 2 Sepsis Recent Fever Within 48 Hours Sepsis New/Unexplained Change in Mental Status Sepsis Action Taken by Nursing 05/09/20 14:25 05/09/20 14:30 Temperature Temperature Source Pulse Rate 94 H 91 H Pulse Rate from SpO2 Sensor 95 H 94 H Pulse Rhythm Pulse Strength Respiratory Rate 17 18 Respiratory Effort / Characteristics Respiratory Depth Respiratory Pattern Blood Pressure 130/56 L 120/53 L Blood Pressure Mean 83 64 Blood Pressure Position Pulse Oximetry 100 98 Oxygen Delivery Method Nasal Cannula Nasal Cannula Oxygen Flow Rate 2 2 Sepsis Recent Fever Within 48 Hours Sepsis New/Unexplained Change in Mental Status Sepsis Action Taken by Nursing VITAL SIGNS - Vital signs and nursing notes were reviewed. GENERAL - 70-year-old male appearing stated age who is in moderate distress. Pt mumbling and incoherent, moving all over the bed SKIN - diffuse bruising all over body. Left ear black, skin itself appears jaundiced HEAD - NC/AT. EYES - PERRL with EOMI bilaterally. jaundiced sclera. Palpebral conjunctiva pink and moist with no injection noted. EARS - No deformities of external structures noted on gross examination bilaterally. No pain elicited with palpation of the tragus bilaterally. External auditory canals without discharge or otorrhea. Tympanic membranes pearly smith without retraction or bulging. No fluid or purulent material visualized behind the TM. Handle of malleus, umbo, cone of light, pars tensa/flaccid all easily visualized. NOSE - Midline and without cyanosis. No epistaxis or purulent drainage noted. Septum midline without deviation or septal hematoma noted. MOUTH/OROPHARYNX - Without perioral cyanosis. Buccal mucosa pink and moist and without leukoplakia. Tongue midline with equal elevation of palate bilaterally. No tonsillar hypertrophy, erythema, or exudates noted. dentition noted. NECK - Neck with FROM. Supple to palpation. lymphadenopathy noted. No nuchal rigidity. LUNGS - Chest wall symmetric without accessory muscle use, intercostals retr actions, or central cyanosis. Normal vesicular breath sounds CTA B/L. No wheezes, rales, or rhonchi appreciated. CARDIAC - RRR with S1/S2. No murmur, rubs, or gallops appreciated. ABDOMEN - Abdominal contour without pulsations or visible masses. BS normoactive all four quadrants. No tenderness, palpable masses, hepatosplenomegaly, or ascites noted. EXTREMITIES - No clubbing or peripheral cyanosis. No pretibial edema present. +3/5 radial, posterior tibial, and dorsalis pedis pulses palpated throughout. +5/5 strength noted in UE/LE bilaterally. NEUROLOGIC - Cranial nerves II through XII grossly intact. Pt withdraws from pain, mumbles Procedures Central Line Placement Right Femoral: Time Out Performed: Yes (Line emergently placed) Patient Placed on Monitor/Pulse Ox: Yes MD Prep: mask, gown and gloves Central Line Prep: Povidone-Iodine 1%, Chlorhexidine scrub and sterile drapes applied Local Anesthetic: lidocaine 1% Amount of anesthesia used (mL): 4 Ultrasound Used for Placement: Yes Central Line Lumen Inserted: triple Post Procedure: sutured in place, good blood return, all ports aspirated, flushed, capped and sterile dressing applied Patient Tolerated Procedure: well Complications: other (continued bleeding at line site) Course Administered Medications Lorazepam (Ativan) 0.5 mg in 1 mls @ 1 mls/min IV Q4H PRN PRN Reason: Anxiety/Agitation Stop: 06/08/20 17:30 Last Admin: 05/09/20 19:52 Dose: 1 mls/min Documented by: [id number] Miscellaneous (Remove Clonidine Patch) 1 ea N/A CQWK BRANDI Stop: 06/08/20 10:29 Last Admin: 05/09/20 11:44 Dose: Not Given Documented by: [id number] Morphine Sulfate (Morphine Sulfate 2 Mg/Ml Carp) 2 mg IV Q4H PRN PRN Reason: Pain or Respiratory Distress Stop: 05/23/20 16:47 Last Admin: 05/10/20 02:36 Dose: 2 mg Documented by: [id number] Admin: 05/09/20 21:34 Dose: 2 mg Documented by: [id number] Admin: 05/09/20 17:27 Dose: 2 mg Documented by: [id number] Discontinued Medications Bacitracin (Bacitracin Oint 15 Gm Tube) Confirm Administered Dose 45 appln .ROUTE .STK-MED ONE Stop: 05/09/20 12:28 Last Admin: 05/09/20 12:30 Dose: 45 appln Documented by: [id number] Clonidine HCl (Clonidine Hcl 0.3 Mg/24 Hr Transderm Sys) 1 patch TD NOW STA Stop: 05/09/20 10:31 Last Admin: 05/09/20 11:43 Dose: Not Given Documented by: [id number] Dextrose (Dextrose 50% 50 Ml Syringe) 50 ml IV NOW STA Stop: 05/09/20 11:17 Last Admin: 05/09/20 11:41 Dose: 50 ml Documented by: [id number] Haloperidol Lactate (Haloperidol Lactate 5 Mg/Ml 1 Ml Vial) 5 mg IV NOW STA Stop: 05/09/20 10:37 Last Admin: 05/09/20 10:43 Dose: 5 mg Documented by: [id number] Haloperidol Lactate (Haloperidol Lactate 5 Mg/Ml 1 Ml Vial) Confirm Administered Dose 5 mg .ROUTE .STK-MED ONE Stop: 05/09/20 10:41 Last Admin: 05/09/20 10:43 Dose: Not Given Documented by: [id number] Multivitamins 10 ml/ Thiamine HCl 100 mg/ Folic Acid 1 mg/Sodium Chloride 1,011.2 mls @ 1,011.2 mls/hr IV .Q1H ONE Stop: 05/09/20 11:29 Last Infusion: 05/09/20 12:40 Dose: 0 mls/hr Documented by: [id number] Admin: 05/09/20 11:41 Dose: 1,011.2 mls/hr Documented by: [id number] Sodium Chloride (Nss 1000ml) 1,000 mls @ 999 mls/hr IV .Q1H1M ONE Stop: 05/09/20 11:30 Last Infusion: 05/09/20 11:47 Dose: 0 mls/hr Documented by: [id number] Admin: 05/09/20 10:46 Dose: 999 mls/hr Documented by: [id number] Lorazepam (Ativan) 2 mg in 4 mls @ 4 mls/min IV UD STA Stop: 05/09/20 10:34 Last Admin: 05/09/20 10:43 Dose: 4 mls/min Documented by: [id number] Piperacillin Sod/Tazobactam Sod (Zosyn) 4.5 gm in 120 mls @ 240 mls/hr IV NOW ONE Stop: 05/09/20 11:45 Last Infusion: 05/09/20 17:14 Dose: 0 mls/hr Documented by: [id number] Admin: 05/09/20 14:41 Dose: 240 mls/hr Documented by: [id number] Levofloxacin/Dextrose (Levaquin/D5w) 750 mg in 150 mls @ 100 mls/hr IV NOW STA Stop: 05/09/20 12:45 Last Admin: 05/09/20 17:13 Dose: Not Given Documented by: [id number] Octreotide Acetate 100 mcg/ (Syringe) 10 mls @ 3 mls/min IV NOW STA Stop: 05/09/20 11:19 Last Admin: 05/09/20 14:26 Dose: 3 mls/min Documented by: [id number] Pantoprazole Sodium (Protonix Bolus/Drip) 0 mls @ 1 mls/hr IV ONE STA Stop: 05/09/20 11:17 Last Admin: 05/09/20 12:30 Dose: Not Given Documented by: [id number] Pantoprazole Sodium 40 mg/ (Dextrose) 100 mls @ 20 mls/hr IV Q5H BRANDI Stop: 06/08/20 11:33 Last Infusion: 05/09/20 17:51 Dose: 0 mg/hr, 0 mls/hr Documented by: [id number] Admin: 05/09/20 17:11 Dose: Not Given Documented by: [id number] Admin: 05/09/20 12:38 Dose: 8 mg/hr, 20 mls/hr Documented by: [id number] Pantoprazole Sodium 80 mg/ (Dextrose) 120 mls @ 400 mls/hr IV NOW ONE Stop: 05/09/20 11:33 Last Infusion: 05/09/20 12:33 Dose: 0 mls/hr Documented by: [id number] Admin: 05/09/20 12:15 Dose: 400 mls/hr Documented by: [id number] Sodium Chloride (Nss) 250 mls @ 15 mls/hr IV .[id number] PRN PRN Reason: For Transfusion Stop: 05/09/20 21:20 Last Infusion: 05/09/20 17:49 Dose: 0 mls/hr Documented by: [id number] Admin: 05/09/20 12:50 Dose: 15 mls/hr Documented by: [id number] Octreotide Acetate 500 mcg/ (Sodium Chloride) 100.5 mls @ 0.168 mls/min IV .Q9H59M BRANDI Stop: 06/08/20 11:29 Last Admin: 05/09/20 13:01 Dose: Not Given Documented by: [id number] Sodium Chloride (Nss 1000ml) 1,000 mls @ 999 mls/hr IV .Q1H1M ONE Stop: 05/09/20 12:30 Last Infusion: 05/09/20 12:38 Dose: 0 mls/hr Documented by: [id number] Admin: 05/09/20 11:42 Dose: 999 mls/hr Documented by: [id number] Phytonadione 10 mg/ Sodium (Chloride) 51 mls @ 102 mls/hr IV ONE ONE Stop: 05/09/20 12:43 Last Infusion: 05/09/20 13:19 Dose: 0 mls/hr Documented by: [id number] Admin: 05/09/20 12:49 Dose: 102 mls/hr Documented by: [id number] Acetylcysteine 9,750 mg/ (Dextrose) 248.75 mls @ 200 mls/hr IV NOW ONE; Protocol Stop: 05/09/20 13:44 Last Infusion: 05/09/20 17:49 Dose: 0 mls/hr Documented by: [id number] Admin: 05/09/20 13:20 Dose: 200 mls/hr Documented by: [id number] Octreotide Acetate 500 mcg/ (Sodium Chloride) 100.5 mls @ 10 mls/hr IV .Q10H3M [facility] Stop: 06/08/20 11:29 Last Admin: 05/09/20 13:20 Dose: 10 mls/hr Documented by: [id number] Acetylcysteine 3,250 mg/ (Dextrose) 516.25 mls @ 125 mls/hr IV TODAY@1430 [facility]; Protocol Stop: 05/09/20 18:38 Last Infusion: 05/09/20 17:49 Dose: 0 mls/hr Documented by: [id number] Admin: 05/09/20 14:36 Dose: 125 mls/hr Documented by: [id number] Acetylcysteine 6,500 mg/ (Dextrose) 1,032.5 mls @ 62.5 mls/hr IV TODAY@1845 [facility]; Protocol Stop: 05/10/20 11:17 Last Admin: 05/09/20 17:11 Dose: Not Given Documented by: [id number] Ioversol (Ioversol 100ml) 90 ml IV ONCE ONE Stop: 05/09/20 12:09 Last Admin: 05/09/20 12:09 Dose: 90 ml Documented by: [id number] Levofloxacin/Dextrose (Levofloxacin 750mg/150ml D5w) Confirm Administered Dose 750 mg IV .STK-MED ONE Stop: 05/09/20 15:39 Last Admin: 05/09/20 17:10 Dose: Not Given Documented by: [id number] Lorazepam (Lorazepam 2 Mg/Ml Vial (Im Use)) Confirm Administered Dose 2 mg .ROUTE .STK-MED ONE Stop: 05/09/20 10:40 Last Admin: 05/09/20 10:43 Dose: Not Given Documented by: [id number] Miscellaneous (Check Clonidine Patch Placement) 1 ea N/A QS [facility] Stop: 06/08/20 15:59 Last Admin: 05/09/20 17:10 Dose: Not Given Documented by: [id number] Piperacillin Sod/Tazobactam Sod (Piperacillin/Tazobactam 4.5 Gm/120ml D5w) Confirm Administered Dose 4.5 gm .ROUTE .STK-MED ONE Stop: 05/09/20 14:25 Last Admin: 05/09/20 14:41 Dose: Not Given Documented by: [id number] Critical Care Time I have personally spent greater than 180 minutes of critical care time in the direct management of this patient. This includes bedside care, interpretation of diagnostic studies, and testing, discussion with consultants, patient, and family members, and other required patient management activities. This 180 minutes is in excess of all separately billable procedures. Medical Decision Making Differential Diagnosis Infection, dehydration, metabolic abnormality, hypo/hyperglycemia, electrolyte disturbance, anemia, hypoxia, cardiac sources, intracerebral event, toxicologic, neurologic, as well as other pathologies. Medical Records Attestation: I reviewed the patient's medical records. Home Medications Current Medication List: was personally reviewed by me Laboratory Data Attestation: I reviewed the patient's lab results. Result diagrams: 05/09/20 11:13 05/09/20 11:13 Lab Results 05/09/20 05/09/20 05/09/20 Range/Units 10:30 10:30 11:12 WBC (4.8-10.8) K/uL RBC (4.7-6.1) M/uL Hgb (14.0-18.0) g/dL POC Hgb 6.5 L* (14.0-18.0) g/dl Hct (42-52) % POC Hct 19 L* (42-52) % MCV (80-100) fL MCH (25-34) pg MCHC (32-36) g/dL RDW Std Deviation (36.4-46.3) fL RDW Coeff of Margarita (11.5-14.5) % Plt Count (130-400) K/uL MPV (7.4-10.4) fL Immature Gran % (Auto) % Neut % (Auto) % Lymph % (Auto) % [place] % (Auto) % Eos % (Auto) % Baso % (Auto) % Neut # (Auto) (1.4-6.5) K/uL Lymph # (Auto) (1.2-3.4) K/uL [place] # (Auto) (0.11-0.59) K/uL Eos # (Auto) (0-0.5) K/uL Baso # (Auto) (0-0.2) K/uL Immature Gran # (Auto) (0.00-0.02) K/uL Polychromasia Macrocytosis Echinocytes ESR (0-14) mm/hr PT (9.0-12.0) Seconds INR (0.9-1.1) APTT (21.0-31.0) Seconds PTT Ratio POC Sodium 142 (135-144) mmol/L Sodium (136-145) mmol/L POC Potassium 3.7 (3.3-5.0) mmol/L Potassium (3.5-5.1) mmol/L POC Chloride 109 (101-112) mmol/L Chloride (98-107) mmol/L Carbon Dioxide (21-32) mmol/L POC Total CO2 20 L (24-31) mmol/L Anion Gap (3-11) POC Anion Gap 17.0 (16-25) mmol/L POC BUN 23 H (7-18) mg/dl BUN (7-18) mg/dl Creatinine (0.6-1.4) mg/dl POC Creatinine 1.5 H (0.6-1.3) mg/dl Est Cr Clr Drug Dosing Est GFR ( Amer) Est GFR (Non-Af Amer) BUN/Creatinine Ratio (10-20) Glucose (70-99) mg/dl POC Glucose (70-99) mg/dl POC Glucose (other) 58 L* (70-99) mg/dl Lactate (0.4-2.0) mmol/L Calcium (8.5-10.1) mg/dl POC Ioniz Calcium Jem 1.20 (1.12-1.32) mmol/l Magnesium (1.8-2.4) mg/dl Ferritin (8-388) ng/ml Total Bilirubin (0.2-1) mg/dl AST (15-37) U/L ALT (12-78) U/L Alkaline Phosphatase (45-117) U/L Lactate Dehydrogenase (87-241) U/L Total Creatine Kinase (39-308) U/L CK-MB (CK-2) (0.5-3.6) ng/ml CK/CKMB % Calc (0-3.0) Troponin I (0-0.045) ng/ml C-Reactive Protein (0-0.29) mg/dl Total Protein (6.4-8.2) gm/dl Albumin (3.4-5.0) gm/dl Globulin (2.5-4.0) gm/dl Albumin/Globulin Ratio (0.9-2) Procalcitonin (0-0.5) ng/ml Ethyl Alcohol mg/dL (0-3) mg/dl COVID-19 Eval Order CovFluRsv at [facility] COVID-19 PCR NEGATIVE (Negative) Influenza Type A (PCR) Negative (Neg) Influenza Type B (PCR) Negative (Neg) RSV (RT-PCR) Negative (Neg) Blood Type Blood Type Recheck Antibody Screen Crossmatch 05/09/20 05/09/20 05/09/20 Range/Units 11:13 11:13 11:13 WBC 11.52 H (4.8-10.8) K/uL RBC 1.82 L (4.7-6.1) M/uL Hgb 6.9 L* (14.0-18.0) g/dL POC Hgb (14.0-18.0) g/dl Hct 20.5 L* (42-52) % POC Hct (42-52) % MCV 112.6 H (80-100) fL MCH 37.9 H (25-34) pg MCHC 33.7 (32-36) g/dL RDW Std Deviation 60.6 H (36.4-46.3) fL RDW Coeff of Margarita 14.9 H (11.5-14.5) % Plt Count 95 L (130-400) K/uL MPV 9.9 (7.4-10.4) fL Immature Gran % (Auto) 0.3 % Neut % (Auto) 85.5 % Lymph % (Auto) 7.1 % [place] % (Auto) 7.1 % Eos % (Auto) 0.0 % Baso % (Auto) 0.0 % Neut # (Auto) 9.85 H (1.4-6.5) K/uL Lymph # (Auto) 0.82 L (1.2-3.4) K/uL [place] # (Auto) 0.82 H (0.11-0.59) K/uL Eos # (Auto) 0.00 (0-0.5) K/uL Baso # (Auto) 0.00 (0-0.2) K/uL Immature Gran # (Auto) 0.03 H (0.00-0.02) K/uL Polychromasia 1+ Macrocytosis Present Echinocytes 2+ ESR 2 (0-14) mm/hr PT 30.6 H (9.0-12.0) Seconds INR 3.1 H (0.9-1.1) APTT 50.1 H* (21.0-31.0) Seconds PTT Ratio 1.8 POC Sodium (135-144) mmol/L Sodium (136-145) mmol/L POC Potassium (3.3-5.0) mmol/L Potassium (3.5-5.1) mmol/L POC Chloride (101-112) mmol/L Chloride (98-107) mmol/L Carbon Dioxide (21-32) mmol/L POC Total CO2 (24-31) mmol/L Anion Gap (3-11) POC Anion Gap (16-25) mmol/L POC BUN (7-18) mg/dl BUN (7-18) mg/dl Creatinine (0.6-1.4) mg/dl POC Creatinine (0.6-1.3) mg/dl Est Cr Clr Drug Dosing Est GFR ( Amer) Est GFR (Non-Af Amer) BUN/Creatinine Ratio (10-20) Glucose (70-99) mg/dl POC Glucose (70-99) mg/dl POC Glucose (other) (70-99) mg/dl Lactate (0.4-2.0) mmol/L Calcium (8.5-10.1) mg/dl POC Ioniz Calcium Jem (1.12-1.32) mmol/l Magnesium (1.8-2.4) mg/dl Ferritin (8-388) ng/ml Total Bilirubin (0.2-1) mg/dl AST (15-37) U/L ALT (12-78) U/L Alkaline Phosphatase (45-117) U/L Lactate Dehydrogenase (87-241) U/L Total Creatine Kinase (39-308) U/L CK-MB (CK-2) (0.5-3.6) ng/ml CK/CKMB % Calc (0-3.0) Troponin I (0-0.045) ng/ml C-Reactive Protein (0-0.29) mg/dl Total Protein (6.4-8.2) gm/dl Albumin (3.4-5.0) gm/dl Globulin (2.5-4.0) gm/dl Albumin/Globulin Ratio (0.9-2) Procalcitonin (0-0.5) ng/ml Ethyl Alcohol mg/dL (0-3) mg/dl COVID-19 Eval Order COVID-19 PCR (Negative) Influenza Type A (PCR) (Neg) Influenza Type B (PCR) (Neg) RSV (RT-PCR) (Neg) Blood Type Blood Type Recheck Antibody Screen Crossmatch 05/09/20 05/09/20 05/09/20 Range/Units 11:13 11:13 11:13 WBC (4.8-10.8) K/uL RBC (4.7-6.1) M/uL Hgb (14.0-18.0) g/dL POC Hgb (14.0-18.0) g/dl Hct (42-52) % POC Hct (42-52) % MCV (80-100) fL MCH (25-34) pg MCHC (32-36) g/dL RDW Std Deviation (36.4-46.3) fL RDW Coeff of Margarita (11.5-14.5) % Plt Count (130-400) K/uL MPV (7.4-10.4) fL Immature Gran % (Auto) % Neut % (Auto) % Lymph % (Auto) % [place] % (Auto) % Eos % (Auto) % Baso % (Auto) % Neut # (Auto) (1.4-6.5) K/uL Lymph # (Auto) (1.2-3.4) K/uL [place] # (Auto) (0.11-0.59) K/uL Eos # (Auto) (0-0.5) K/uL Baso # (Auto) (0-0.2) K/uL Immature Gran # (Auto) (0.00-0.02) K/uL Polychromasia Macrocytosis Echinocytes ESR (0-14) mm/hr PT (9.0-12.0) Seconds INR (0.9-1.1) APTT (21.0-31.0) Seconds PTT Ratio POC Sodium (135-144) mmol/L Sodium 145 (136-145) mmol/L POC Potassium (3.3-5.0) mmol/L Potassium 3.8 (3.5-5.1) mmol/L POC Chloride (101-112) mmol/L Chloride 115 H (98-107) mmol/L Carbon Dioxide 20 L (21-32) mmol/L POC Total CO2 (24-31) mmol/L Anion Gap 10.0 (3-11) POC Anion Gap (16-25) mmol/L POC BUN (7-18) mg/dl BUN 25 H (7-18) mg/dl Creatinine 1.66 H (0.6-1.4) mg/dl POC Creatinine (0.6-1.3) mg/dl Est Cr Clr Drug Dosing Not Reportable Est GFR ( Amer) 47.0 Est GFR (Non-Af Amer) 40.6 BUN/Creatinine Ratio 15.2 (10-20) Glucose 60 L (70-99) mg/dl POC Glucose (70-99) mg/dl POC Glucose (other) (70-99) mg/dl Lactate 6.0 H* (0.4-2.0) mmol/L Calcium 8.9 (8.5-10.1) mg/dl POC Ioniz Calcium Jem (1.12-1.32) mmol/l Magnesium 1.5 L (1.8-2.4) mg/dl Ferritin 1156.8 H (8-388) ng/ml Total Bilirubin 11.4 H (0.2-1) mg/dl AST 122 H (15-37) U/L ALT 35 (12-78) U/L Alkaline Phosphatase 100 (45-117) U/L Lactate Dehydrogenase (87-241) U/L Total Creatine Kinase 1354 H (39-308) U/L CK-MB (CK-2) 17.0 H (0.5-3.6) ng/ml CK/CKMB % Calc 1.3 (0-3.0) Troponin I 0.048 H* (0-0.045) ng/ml C-Reactive Protein 2.61 H (0-0.29) mg/dl Total Protein 4.6 L (6.4-8.2) gm/dl Albumin 2.1 L (3.4-5.0) gm/dl Globulin 2.5 (2.5-4.0) gm/dl Albumin/Globulin Ratio 0.8 L (0.9-2) Procalcitonin 1.29 H (0-0.5) ng/ml Ethyl Alcohol mg/dL (0-3) mg/dl COVID-19 Eval Order COVID-19 PCR (Negative) Influenza Type A (PCR) (Neg) Influenza Type B (PCR) (Neg) RSV (RT-PCR) (Neg) Blood Type Blood Type Recheck Antibody Screen Crossmatch 05/09/20 05/09/20 05/09/20 Range/Units 11:13 11:13 11:25 WBC (4.8-10.8) K/uL RBC (4.7-6.1) M/uL Hgb (14.0-18.0) g/dL POC Hgb (14.0-18.0) g/dl Hct (42-52) % POC Hct (42-52) % MCV (80-100) fL MCH (25-34) pg MCHC (32-36) g/dL RDW Std Deviation (36.4-46.3) fL RDW Coeff of Margarita (11.5-14.5) % Plt Count (130-400) K/uL MPV (7.4-10.4) fL Immature Gran % (Auto) % Neut % (Auto) % Lymph % (Auto) % [place] % (Auto) % Eos % (Auto) % Baso % (Auto) % Neut # (Auto) (1.4-6.5) K/uL Lymph # (Auto) (1.2-3.4) K/uL [place] # (Auto) (0.11-0.59) K/uL Eos # (Auto) (0-0.5) K/uL Baso # (Auto) (0-0.2) K/uL Immature Gran # (Auto) (0.00-0.02) K/uL Polychromasia Macrocytosis Echinocytes ESR (0-14) mm/hr PT (9.0-12.0) Seconds INR (0.9-1.1) APTT (21.0-31.0) Seconds PTT Ratio POC Sodium (135-144) mmol/L Sodium (136-145) mmol/L POC Potassium (3.3-5.0) mmol/L Potassium (3.5-5.1) mmol/L POC Chloride (101-112) mmol/L Chloride (98-107) mmol/L Carbon Dioxide (21-32) mmol/L POC Total CO2 (24-31) mmol/L Anion Gap (3-11) POC Anion Gap (16-25) mmol/L POC BUN (7-18) mg/dl BUN (7-18) mg/dl Creatinine (0.6-1.4) mg/dl POC Creatinine (0.6-1.3) mg/dl Est Cr Clr Drug Dosing Est GFR ( Amer) Est GFR (Non-Af Amer) BUN/Creatinine Ratio (10-20) Glucose (70-99) mg/dl POC Glucose (70-99) mg/dl POC Glucose (other) (70-99) mg/dl Lactate (0.4-2.0) mmol/L Calcium (8.5-10.1) mg/dl POC Ioniz Calcium Jem (1.12-1.32) mmol/l Magnesium (1.8-2.4) mg/dl Ferritin (8-388) ng/ml Total Bilirubin (0.2-1) mg/dl AST (15-37) U/L ALT (12-78) U/L Alkaline Phosphatase (45-117) U/L Lactate Dehydrogenase 564 H (87-241) U/L Total Creatine Kinase (39-308) U/L CK-MB (CK-2) (0.5-3.6) ng/ml CK/CKMB % Calc (0-3.0) Troponin I (0-0.045) ng/ml C-Reactive Protein (0-0.29) mg/dl Total Protein (6.4-8.2) gm/dl Albumin (3.4-5.0) gm/dl Globulin (2.5-4.0) gm/dl Albumin/Globulin Ratio (0.9-2) Procalcitonin (0-0.5) ng/ml Ethyl Alcohol mg/dL < 3.0 (0-3) mg/dl COVID-19 Eval Order COVID-19 PCR (Negative) Influenza Type A (PCR) (Neg) Influenza Type B (PCR) (Neg) RSV (RT-PCR) (Neg) Blood Type O Positive Blood Type Recheck Antibody Screen NEGATIVE Crossmatch See Detail 05/09/20 05/09/20 05/09/20 Range/Units 12:15 13:05 13:10 WBC (4.8-10.8) K/uL RBC (4.7-6.1) M/uL Hgb (14.0-18.0) g/dL POC Hgb (14.0-18.0) g/dl Hct (42-52) % POC Hct (42-52) % MCV (80-100) fL MCH (25-34) pg MCHC (32-36) g/dL RDW Std Deviation (36.4-46.3) fL RDW Coeff of Margarita (11.5-14.5) % Plt Count (130-400) K/uL MPV (7.4-10.4) fL Immature Gran % (Auto) % Neut % (Auto) % Lymph % (Auto) % [place] % (Auto) % Eos % (Auto) % Baso % (Auto) % Neut # (Auto) (1.4-6.5) K/uL Lymph # (Auto) (1.2-3.4) K/uL [place] # (Auto) (0.11-0.59) K/uL Eos # (Auto) (0-0.5) K/uL Baso # (Auto) (0-0.2) K/uL Immature Gran # (Auto) (0.00-0.02) K/uL Polychromasia Macrocytosis Echinocytes ESR (0-14) mm/hr PT (9.0-12.0) Seconds INR (0.9-1.1) APTT (21.0-31.0) Seconds PTT Ratio POC Sodium (135-144) mmol/L Sodium (136-145) mmol/L POC Potassium (3.3-5.0) mmol/L Potassium (3.5-5.1) mmol/L POC Chloride (101-112) mmol/L Chloride (98-107) mmol/L Carbon Dioxide (21-32) mmol/L POC Total CO2 (24-31) mmol/L Anion Gap (3-11) POC Anion Gap (16-25) mmol/L POC BUN (7-18) mg/dl BUN (7-18) mg/dl Creatinine (0.6-1.4) mg/dl POC Creatinine (0.6-1.3) mg/dl Est Cr Clr Drug Dosing Est GFR ( Amer) Est GFR (Non-Af Amer) BUN/Creatinine Ratio (10-20) Glucose (70-99) mg/dl POC Glucose 129 H (70-99) mg/dl POC Glucose (other) (70-99) mg/dl Lactate 5.3 H* (0.4-2.0) mmol/L Calcium (8.5-10.1) mg/dl POC Ioniz Calcium Jem (1.12-1.32) mmol/l Magnesium (1.8-2.4) mg/dl Ferritin (8-388) ng/ml Total Bilirubin (0.2-1) mg/dl AST (15-37) U/L ALT (12-78) U/L Alkaline Phosphatase (45-117) U/L Lactate Dehydrogenase (87-241) U/L Total Creatine Kinase (39-308) U/L CK-MB (CK-2) (0.5-3.6) ng/ml CK/CKMB % Calc (0-3.0) Troponin I (0-0.045) ng/ml C-Reactive Protein (0-0.29) mg/dl Total Protein (6.4-8.2) gm/dl Albumin (3.4-5.0) gm/dl Globulin (2.5-4.0) gm/dl Albumin/Globulin Ratio (0.9-2) Procalcitonin (0-0.5) ng/ml Ethyl Alcohol mg/dL (0-3) mg/dl COVID-19 Eval Order COVID-19 PCR (Negative) Influenza Type A (PCR) (Neg) Influenza Type B (PCR) (Neg) RSV (RT-PCR) (Neg) Blood Type Blood Type Recheck O Positive Antibody Screen Crossmatch Imaging Data Radiologist's Impression: [facility], [phone] CT Scan Report Patient: ELIZABETH CANTU Admit Date: 05/09/20 MR#: [id number] Address1: [address] [place] [address] [employer] ID:[id number] Address2: [address] Date: 1950 [facility] Zip: [place] [address] Age: 70 Location: ED Sex: M Room/Bed: Att Phy: Diagnosis: Illness Sharita Phy: Andressa Ballard, DO Service Date: 05/09/20 [facility] Phy: Interpreting Phy: Rodolfo Eli MD Admit Phy: Ordering Phy: Fidencio Campbell MD cc: ~ CT head/brain wo con CLINICAL HISTORY: Acute change in mental status. Slurred speech. Possible acute stroke. COMPARISON STUDY: No previous studies for comparison. TECHNIQUE: Axial CT of the brain is performed from the vertex to the skull base. IV contrast was not administered for this examination. A dose lowering technique was utilized adhering to the principles of ALARA. CT DOSE: FINDINGS: No intra or extra-axial mass lesions are visualized. There is no CT evidence of acute cortical infarction. There is no evidence of midline shift. There is no acute hemorrhage. No calvarial fractures are visualized. There are patchy white matter hypodensities likely on a small vessel basis. There is no evidence of pathologic ventricular dilatation. There is no evidence of acute sinusitis There is a left zygomatic arch fracture, likely old. Correlation with clinical findings recommended. IMPRESSION: 1. No acute intracranial findings 2. Left zygomatic arch fracture, possibly old. ACT 112: Negative or not required by law. Electronically signed by: Rodolfo Eli M.D. 05/09/2020 12:13 PM Dictated: 05/09/20 1212 Transcribed: 05/09/20 1212 [facility], [phone] CT Scan Report Patient: ELIZABETH CANTUAdmit Date: 05/09/20#: [id number]: 63 [address] [facility] ID:[id number]: [address]Birth Date: 1950[facility] Zip: [place], [place] [address]Jwg: 70Location: EDSex: MRoom/Bed:Att Phy:Diagnosis: IllnessPri Phy: Andressa Ballard, DOService Date: 05/09/20Fam Phy:Interpreting Phy: Umesh Rojas MDAdmit Phy: Ordering Phy: Fidencio Campbell MD cc: ~ CERVICAL SPINE CT CT DOSE: 2109.21 mGy.cm HISTORY: Pt c/o trauma TECHNIQUE: Multiaxial CT images of the cervical spine were performed and reformatted in the sagittal and coronal plane without the use of contrast. A dose lowering technique was utilized adhering to the principles of ALARA. COMPARISON: None. FINDINGS: No fractures. No subluxation. Prevertebral soft tissues and the C1-C2 interval are intact. Straightening of the cervical spine. Moderate disc space narrowing at C5-C6 and C6-C7 with endplate osteophytes. There is subcutaneous edema seen throughout the neck. There is also mild edema surrounding the thyroid gland. IMPRESSION: 1. No fractures within the cervical spine. 2. Subcutaneous edema seen throughout the neck as well as mild edema surrounding the thyroid gland. ACT 112: Negative or not required by law. Electronically signed by: Umesh Rojas M.D. 05/09/2020 12:18 PM Dictated: 05/09/20 1213Transcribed: 05/09/20 1213 [facility], [phone] CT Scan Report Patient: ELIZABETH CANTUAdmit Date: 05/09/20#: [id number][facility] 63 [facility][id number]: [address]Birth Date: 1950[facility] Zip: [place], [place] [address]Ktv: 70Location: EDSex: MRoom/Bed:Att Phy:Diagnosis: IllnessPri Phy: Andressa Ballard, DOService Date: 05/09/20Fa Phy:Interpreting Phy: River CarmenAdmit Phy: Ordering Phy: Fidencio Campbell MD cc: ~ ABDOMEN AND PELVIS CT WITH IV CONTRAST HISTORY: Acute chest and abdominal trauma status post fall. The patient was found down. Pt AMS TECHNIQUE: Multiaxial CT images of the abdomen and pelvis were performed following the IV administration of 90 cc of Optiray 320, A dose lowering technique was utilized adhering to the principles of ALARA. COMPARISON STUDY: Chest CT of same day, CT abdomen and pelvis from outside institution (images only without report) 12/28/2019. FINDINGS: Limited exam secondary to upper extremity positioning. Small layering pleural effusions with with mild bibasilar groundglass densities suggestive of atelectasis. Emphysema with bronchial wall thickening. Respiratory motion artifact limits the study. There is no pneumatosis or pneumoperitoneum. Calcified granulomata of the spleen. Unremarkable adrenal glands. Mildly atrop hic pancreas is unremarkable. Mild gallbladder distention with cholelithiasis. No definite gallbladder wall thickening. Diffusely heterogeneous liver with marginal nodularity redemonstrated compatible with cirrhosis. Scattered hepatic calcifications. Portal vein appears patent. Recanalization of the umbilical vein with abdominal pelvic varices including a large periumbilical varix. No hydronephrosis. Mild urinary bladder distention. Mild prostamegaly. Small fat and fluid filled inguinal hernias. Mixed plaque of the abdominal aorta with fusiform ectasia of the infrarenal segment, 2.6 x 2.4 cm. Nonspecific prominent inguinal chain lymph nodes. Moderate diffuse wall thickening of the stomach with diffuse wall thickening of the large and small bowel. No bowel obstruction. The appendix is not definitively seen. Small volume of abdominopelvic ascites with diffuse mesenteric and body wall edema. No retroperitoneal hematoma. There are a few remote right-sided rib fractures. Several subacute healing left- sided rib fractures are noted involving the posterior posterolateral left seventh through 12th ribs. Indeterminate lucency is noted involving the posterior left seventh rib at the site of fracture. No definite acute fracture identified. IMPRESSION: 1. Mildly limited study as above. 2. Numerous healing subacute left-sided rib fractures. No acute fracture identified. 3. No evidence of acute solid organ injury. 4. Cirrhotic liver disease with stigmata of portal venous hypertension with abdominal pelvic varices, small volume of abdominal pelvic ascites with anasarca and small pleural effusions. 5. Wall thickening of the stomach, small and large bowel is likely secondary to underlying chronic liver disease. Nonspecific gastroenteritis/colitis considered less likely. 6. Additional findings as above. ACT 112: Negative or not required by law. The above report was generated using voice recognition software. It may contain grammatical, syntax or spelling errors. Electronically signed by: Cecil Carmen M.D. 05/09/2020 12:33 PM Dictated: 05/09/201215Transcribed: 05/09/201215 ECG Data Attestation: I personally reviewed and interpreted this ECG as follows: Indication: + altered mental status Rate (beats per minute): 90 Rhythm: + normal sinus ECG Intervals/blocks: + Normal QT-c (494) ECG [place]: + Normal ECG ST segments: no ST depression and no ST elevation ECG Findings: + Q waves (Anterior) Comparison ECG Date: from (12/28/2019) Change: the following changes noted (new septal infarct) MDM Narrative Patient was seen and evaluated as above in room A9. Review was performed of nursing notes and vital signs. I did review pertinent previous visits and patient history. After obtaining a thorough history and physical examination the above work up was performed. Due to the patient being agitated and unable to follow commands he was given 2 mg of Ativan IV as well as 5 mg of Haldol after conferring with the patient's nephew who wishes the patient to be a full code. After this from line access a central line was placed. He was started on IV Protonix bolus and drip as well as an IV somatostatin bolus and drip. Patient was found to have grossly elevated INR and therefore was given 10 of vitamin K. I did discuss the patient's elevated INR with Dr. Shruti adkins who asked that the patient be given 2 units of FFP. The patient's nephew did consent over the phone for blood products this was witnessed by the charge nurse. He was then given 2 units of packed red blood cells. He was found to have an elevated troponin. He was started on broad-spectrum antibiotics including Zosyn Levaquin and daptomycin. I did discuss the case with both the hospitalist gastroenterology as well as the marine pipefitter helper. A lactate was drawn which was found to be elevated. The patient was given normal saline bolus 30 mL/kg of fluid. Blood and urine cultures were also obtained An order was placed for continuous cardiac monitoring. The monitor shows a rate of 93 with Normal Sinus rhythm. The patient was evaluated during a period of high volume and high acuity while the hospital was at overcapacity during the global COVID-19 pandemic, and that diagnosis was suspected/considered upon their initial presentation. Their evaluation, treatment and testing was consistent with current guidelines for patients who present with complaints or symptoms that may be related to COVID-19. Impression & Plan Hypoglycemia, GI bleed, Anemia, Thrombocytopenia, Multiorgan failure, Sepsis Discharge Plan Visit Data Stated Complaint: Illness ED Provider: Fidencio Campbell Discharge Problem: Hypoglycemia, GI bleed, Anemia, Thrombocytopenia, Multiorgan failure, Sepsis Patient Disposition: Admitted As Inpatient Discharge Instructions Interventions: ED Discharge Assessment Last Done: 05/09/20 14:53 Discharge Problem: Anemia Qualifiers: Anemia type: unspecified type Qualified Code(s): D64.9 - Anemia, unspecified
[2020-05-09 11:50] LABS: INR 3.1 (0.9-1.1); Partial Thromboplastin Ratio 1.8; Prothrombin Time 30.6 Seconds (9.0-12.0)
[2020-05-09 12:06] LABS: Partial Thromboplastin Time 50.1 Seconds (21.0-31.0)
[2020-05-09] MEDS ORDERED: OPTIRAY 320 100ml IV ONE (12:08)
[2020-05-09 12:12] LABS: Alanine Aminotransferase 35 U/L (12-78); Albumin Globulin Ratio 0.8 (0.9-2); Albumin Level 2.1 gm/dl (3.4-5.0); Alkaline Phosphatase 100 U/L (45-117); Aspartate Aminotransferase 122 U/L (15-37); BUN Creatinine Ratio 15.2 (10-20); Bilirubin,Total 11.4 mg/dl (0.2-1); Blood Urea Nitrogen 25 mg/dl (7-18); C Reactive Protein 2.61 mg/dl (0-0.29); Calcium 8.9 mg/dl (8.5-10.1); Carbon Dioxide 20 mmol/L (21-32); Chloride 115 mmol/L (98-107); Creatine Kinase 1354 U/L (39-308); Est GFR (Non-African American) 40.6; Ferritin 1156.8 ng/ml (8-388); Globulin 2.5 gm/dl (2.5-4.0); Glucose 60 mg/dl (70-99); Magnesium 1.5 mg/dl (1.8-2.4); Potassium 3.8 mmol/L (3.5-5.1); Sodium 145 mmol/L (136-145); Total Protein 4.6 gm/dl (6.4-8.2); Troponin I 0.048 ng/ml (0-0.045)
[2020-05-09] MEDS ORDERED: PHYTONADIONE 10 MG in SODIUM CHLORIDE 0.9% 50 ML IV ONE (12:14)
--- NOTE | 2020-05-09 12:14 | CT Scan Report ---
CT head/brain wo con CLINICAL HISTORY: Acute change in mental status. Slurred speech. Possible acute stroke. COMPARISON STUDY: No previous studies for comparison. TECHNIQUE: Axial CT of the brain is performed from the vertex to the skull base. IV contrast was not administered for this examination. A dose lowering technique was utilized adhering to the principles of ALARA. CT DOSE: FINDINGS: No intra or extra-axial mass lesions are visualized. There is no CT evidence of acute cortical infarc tion. There is no evidence of midline shift. There is no acute hemorrhage. No calvarial fractures ar e visualized. There are patchy white matter hypodensities likely on a small vessel basis. There is no evidence of pathologic ventricular dilatation. There is no evidence of acute sinusitis There is a left zygomatic arch fracture, likely old. Correlation with clinical findings recommended. IMPRESSION: 1. No acute intracranial findings 2. Left zygomatic arch fracture, possibly old. ACT 112: Negative or not required by law. Electronically signed by: Rodolfo Eli M.D. 05/09/2020 12:13 PM
--- NOTE | 2020-05-09 12:19 | CT Scan Report ---
CERVICAL SPINE CT CT DOSE: 2109.21 mGy.cm HISTORY: Pt c/o trauma TECHNIQUE: Multiaxial CT images of the cervical spine were performed and reformatted in the sagittal and coronal plane without the use of contrast. A dose lowering technique was utilized adhering to th e principles of ALARA. COMPARISON: None. FINDINGS: No fractures. No subluxation. Prevertebral soft tissues and the C1-C2 interval are intact. Straightening of the cervical spine. Moderate disc space narrowing at C5-C6 and C6-C7 with endplate o steophytes. There is subcutaneous edema seen throughout the neck. There is also mild edema surroundin g the thyroid gland. IMPRESSION: 1. No fractures within the cervical spine. 2. Subcutaneous edema seen throughout the neck as well as mild edema surrounding the thyroid gland. ACT 112: Negative or not required by law. Electronically signed by: Umesh Rojas M.D. 05/09/2020 12:18 PM
[2020-05-09] MEDS ORDERED: BACITRACIN OINT 15 GM TUBE ONE (12:27)
--- NOTE | 2020-05-09 12:34 | CT Scan Report ---
ABDOMEN AND PELVIS CT WITH IV CONTRAST HISTORY: Acute chest and abdominal trauma status post fall. The patient was found down. Pt AMS TECHNIQUE: Multiaxial CT images of the abdomen and pelvis were performed following the IV administrat ion of 90 cc of Optiray 320, A dose lowering technique was utilized adhering to the principles of AL ANNA. COMPARISON STUDY: Chest CT of same day, CT abdomen and pelvis from outside institution (images only w ithout report) 12/28/2019. FINDINGS: Limited exam secondary to upper extremity positioning. Small layering pleural effusions wit h with mild bibasilar groundglass densities suggestive of atelectasis. Emphysema with bronchial wall thickening. Respiratory motion artifact limits the study. There is no pneumatosis or pneumoperitoneum . Calcified granulomata of the spleen. Unremarkable adrenal glands. Mildly atrophic pancreas is unremar kable. Mild gallbladder distention with cholelithiasis. No definite gallbladder wall thickening. Diff usely heterogeneous liver with marginal nodularity redemonstrated compatible with cirrhosis. Scattere d hepatic calcifications. Portal vein appears patent. Recanalization of the umbilical vein with abdom inal pelvic varices including a large periumbilical varix. No hydronephrosis. Mild urinary bladder distention. Mild prostamegaly. Small fat and fluid filled ing uinal hernias. Mixed plaque of the abdominal aorta with fusiform ectasia of the infrarenal segment, 2 .6 x 2.4 cm. Nonspecific prominent inguinal chain lymph nodes. Moderate diffuse wall thickening of the stomach with diffuse wall thickening of the large and small b owel. No bowel obstruction. The appendix is not definitively seen. Small volume of abdominopelvic asc ites with diffuse mesenteric and body wall edema. No retroperitoneal hematoma. There are a few remote right-sided rib fractures. Several subacute healing left-sided rib fractures a re noted involving the posterior posterolateral left seventh through 12th ribs. Indeterminate lucency is noted involving the posterior left seventh rib at the site of fracture. No definite acute fractur e identified. IMPRESSION: 1. Mildly limited study as above. 2. Numerous healing subacute left-sided rib fractures. No acute fracture identified. 3. No evidence of acute solid organ injury. 4. Cirrhotic liver disease with stigmata of portal venous hypertension with abdominal pelvic varices, small volume of abdominal pelvic ascites with anasarca and small pleural effusions. 5. Wall thickening of the stomach, small and large bowel is likely secondary to underlying chronic li tala disease. Nonspecific gastroenteritis/colitis considered less likely. 6. Additional findings as above. ACT 112: Negative or not required by law. The above report was generated using voice recognition software. It may contain grammatical, syntax o r spelling errors. Electronically signed by: Cecil Carmen M.D. 05/09/2020 12:33 PM
[2020-05-09] MEDS: PANTOprazole 40 MG in DEXTROSE 5% 100 ML IV SCH ×2 (12:38→17:11)
--- NOTE | 2020-05-09 12:38 | CT Scan Report ---
CHEST CT WITH CONTRAST CT DOSE: HISTORY: Trauma. TECHNIQUE: Multiaxial CT images of the chest were performed following the intravenous administration of contrast. A dose lowering technique was utilized adhering to the principles of ALARA. COMPARISON: None. FINDINGS: Minimal anterior wedging at T7. This is likely chronic. There is a healing manubrial fractu re. Patchy area of sclerosis within the left humeral head may represent avascular necrosis. There is a healing right anterior second rib fracture. Multiple additional old, healed right posterior rib fra ctures. There are multiple healing left lower posterior rib fractures. No acute fractures identified within the chest. Cirrhotic liver with ascites identified. This is better appreciated on the same day abdomen and pelvis CT. Multiple distal small paraesophageal varices are noted. Mild diffuse body wal l edema. Small bilateral pleural effusions. No mediastinal hematoma. No mediastinal hilar lymphadenop athy. The heart is normal in size. No pericardial effusion. Normal caliber thoracic aorta with no leonardo dence for dissection. The central pulmonary arteries are patent. Biapical pleural-parenchymal scarlik e densities are noted. No pneumothorax. Mild emphysema. Scattered blebs are seen throughout the lungs . The central airways appear patent. Mild interlobular septal thickening within the lung apices. This may represent mild congestive change. Small patchy density at the base of the left lower lobe favor atelectasis. A 5 mm nodular density at the right minor fissure on image 169. This is likely benign. A 1.2 cm nodular density at the base of the right lower lobe. This favors atelectasis. IMPRESSION: 1. Multiple healing left-sided rib fractures and a healing manubrial fracture. No acute fractures karly ntified within the chest. 2. No pneumothorax. 3. Cirrhosis with ascites. This is better appreciated on the same day abdomen and pelvis CT. 4. Mild diffuse body wall edema. 5. Small bilateral pleural effusions. 6. Mild emphysema. 7. Mild congestive change suggested within the lungs. 8. There are 2 nodular densities within the right lung with the largest at the right lung base measur ing 1.2 cm. This favors atelectasis. However, [address] follow-up recommended to ensure stabil ity. ACT 112: Negative or not required by law. Electronically signed by: Umesh Rojas M.D. 05/09/2020 12:37 PM
[2020-05-09 12:46] LABS: Influenza A virus by PCR Negative (Neg); Influenza B virus by PCR Negative (Neg); RSV by PCR Negative (Neg); SARS CoV2 RNA(COVID-19) InHosp NEGATIVE (Negative)
[2020-05-09 12:49] LABS: Hematocrit (blood only) 20.5 % (42-52); Hemoglobin 6.9 g/dL (14.0-18.0); Mean Corpuscular Hemoglobin 37.9 pg (25-34); Mean Corpuscular Hgb Conc 33.7 g/dL (32-36); Mean Corpuscular Volume 112.6 fL (80-100); Mean Platelet Volume 9.9 fL (7.4-10.4); Platelet Count 95 K/uL (130-400); RDW Coefficient of Variation 14.9 % (11.5-14.5); RDW Standard Deviation 60.6 fL (36.4-46.3); Red Blood Count 1.82 M/uL (4.7-6.1); White Blood Count 11.52 K/uL (4.8-10.8)
[2020-05-09 12:57] LABS: Appearance Urine Slightly Cloudy (Clear); Blood Urine 1+ (Negative); Color Urine Amber; Glucose Urine UA Negative (Negative); Ketones Urine Trace (Negative); Leukocyte Esterase Urine Negative (Negative); Nitrite Urine Positive (Negative); Protein Urine 2+ (Negative); Specific Gravity Urine >= 1.030 (1.000-1.030); Urobilinogen Urine Negative (Negative)
[2020-05-09 13:12] LABS: Bilirubin Urine 2+ (Negative); Ictotest Urine Positive (Negative)
[2020-05-09 13:12] LABS: Echinocytes 2+; Immature Granulocytes # (auto) 0.03 K/uL (0.00-0.02); Immature Granulocytes % (auto) 0.3 %; Lymphocytes # (auto) 0.82 K/uL (1.2-3.4); Lymphocytes % (auto) 7.1 %; Macrocytosis Present; Monocytes # (auto) 0.82 K/uL (0.11-0.59); Monocytes % (auto) 7.1 %; Neutrophils # (auto) 9.85 K/uL (1.4-6.5); Neutrophils % (auto) 85.5 %; Polychromasia 1+
[2020-05-09 13:13] LABS: Mucus Urine Present (None Prsent)
[2020-05-09 13:14] LABS: Bacteria Urine 1+ (Negative)
[2020-05-09 14:00] LABS: Amphetamines+Metham, Urine Neg (Neg); Barbiturates, Urine Neg (Neg); Benzodiazepine, Urine Neg (Neg); Cocaine, Urine Neg (Neg); MDMA (Ecstacy), Urine Neg (Neg); Methadone, Urine Neg (Neg); Opiate, Urine Neg (Neg); Phencyclidine, Urine Neg (Neg)
--- NOTE | 2020-05-09 14:00 | Communication Note ---
Date of Service: May 09, 2020 Received a call from ED physician Dr. Fidencio Campbell about this pt. Pt found on home floor, by home health nurse. Last contact by home health nurse about 48hrs ago. He appears intoxicated, bruises all over body. He has hx of ETOH abuse, cirrhosis w complications of hepatic encephalopathy, esophageal varices. Previous endoscopies done at [facility] but we don't have records to review. He had telephonic visit by [facility] in August but no f/u due to transportation issues. Also admitted last in November for ETOH intoxication, seen by our GI team as well. Chart reviewed. Pt has worsening anemia. Not having mark hematemesis or over signs of melena/LGIB. He is midly hypotensive, tachy, w hypothermia. + elevation of Trophonin, CK, lactic acid levels. Coagulopathy and thrombocytopenia is noted. LFTs up w Tbili 11 (similar during his November admission). ABIGAIL. Recommendations: - Keep NPO for now - IVF and PRBC transfusions; monitor blood ct and for any s/s of GI bleeding - PPI bolus and gtt - Octreotide bolus and gtt - IV antibx such as Ceftriaxone for SBP prophylaxis - Infectious workup - Vit K to reverse coagulopathy - Will follow once admitted I discussed the case with Ms. Mahmoodhon. Full consultation to be done tomorrow as there does not appear to be an acute indication for endoscopic intervention.
--- NOTE | 2020-05-09 14:06 | History & Physical Report ---
Date of Service May 09, 2020 Assessment & Plan (1) Goals of care, counseling/discussion: Given the patient life threatening illness I discussed with his nephew over the phone. Initially feels patient should be for full resuscitation however will be arriving in approximately 1 hour for a full discussion. (2) Metabolic encephalopathy: Multifactorial Admit to ICU given severity of illness and high likelihood of intubation. Sepsis, alcohol intoxication/withdrawal, Hypoglycemia ABG pending Ammonia pending (3) Sepsis: Possible sepsis with source SBP +/- urine +/- cellulitis Continue Zosyn Follow up blood and urine cultures Lactate 6.0 -> 5.3 (4) Macrocytic anemia: Suspected hemolytic (elevated LDH) and GI bleed. Possible DIC although platelets unremarkable. (5) DIC (disseminated intravascular coagulation): Possible given ecchymosis, prolonged PT/PTT, thrombocytopenia and hemolytic anemia. Treat conditions above. (6) Thrombocytopenia: Liver failure +/- DIC (7) GI bleed: Continue IV pantoprazole and IV octreotide (8) Hypoglycemia: BSG Q2H with Dextrose 50%50ml given in ER without much effect on mental state. (9) Acute hepatic failure: Suspected from alcohol use. Consult GI Continue N-acetylcysteine taper (10) Hypomagnesemia: Replace per ICU protocol (11) COPD (chronic obstructive pulmonary disease): Continue Advair as able (12) Hepatic cirrhosis: Hold nadolol (13) Spontaneous bacterial peritonitis: Possible, although only low volume ascites. Patient not stable enough for paracentesis regardless. Continue Zosyn as above (14) Multiorgan failure: Admission and Anticipated Discharge Date Admission Date: 05/09/2020 History of Present Illness Chief Complaint: Altered mental state Primary Care Provider: DO Ted Prescott Yumi is a 70-year-old male who presents to the ER after being found on the floor by home health nurse today. Last seen two days prior to this. Unable to get any history from patient due to altered mental state. He has known alcoholic liver cirrhosis and continues to drink alcohol He was previously admitted here in November for direct admission from [facility] due to altered mental status and was diagnosed with alcohol withdrawal at that time. Allergies Allergy/AdvReac Type Severity Reaction Status Date / Time albuterol Allergy Mild eye Verified 05/09/20 11:45 swelling aspirin AdvReac Mild uset Verified 05/09/20 11:45 stomach Home Medications Medication Instructions Recorded Confirmed Type folic acid 1 mg tablet 1 mg PO DAILY #30 tab 02/08/20 05/09/20 Rx levalbuterol tartrate 45 2 inh INHALATION Q6H PRN #15 g 02/08/20 05/09/20 Rx mcg/actuation aerosol inhaler nadolol 40 mg tablet 40 mg PO DAILY #30 tab 02/08/20 05/09/20 Rx omeprazole 20 mg capsule,delayed 20 mg PO DAILY #30 cap 02/08/20 05/09/20 Rx release thiamine HCl (vitamin B1) 100 mg 100 mg PO DAILY #30 tab 02/08/20 05/09/20 Rx tablet magnesium oxide 400 mg (241.3 mg 400 mg PO DAILY #30 tab 03/14/20 05/09/20 Rx magnesium) tablet fluticasone propion-salmeterol 1 inh INH BID 05/09/20 05/09/20 History [Advair Diskus] Past Med/Surg History Medical History Abdominal aortic aneurysm (07/2019) Acid reflux Atherosclerotic cardiovascular disease Cholelithiasis COPD (chronic obstructive pulmonary disease) Emphysema of lung Esophageal 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 Hepatic cirrhosis Hypertension Portal hypertension Splenomegaly Thiamine deficiency Thrombocytopenia Surgical History S/P hernia repair Family History Denies family history of Ovarian cancer Prostate cancer Myocardial infarction Breast cancer Colorectal cancer Social History Smoking Status: Never smoker Age Quit Using Tobacco: 38; packs per day: 3; Hx Alcohol Use: Yes Hx Substance Use: No (aox1, n/a) Preferred Language: Polish Communication Ability: Unable Visual Impairment: No Limitations Hearing Ability: Hard of Hearing Wel[employer] Arc Required: No Beliefs That Will Affect Care: None marital status: Current Living Situation: Alone Current Living Situation Comment: Lives in [facility] current occupational status: retired Feels Safe at Home: Declines to Answer Childhood Exposure to Second-Hand Smoke: No caffeine: Yes (Coffee x 1/2 cup per day. ) during the past year weight has: remained stable Dental Care, Regularly: No Physical Activity Frequency: Daily Seatbelt Use: never Sunscreen Use: No Assistive Devices: None Review of Systems Review of Systems: Unobtainable due to reduced consciousness Physical Exam Constitutional: + ill appearing; + not well nourished and no acute distress Eyes: sclerae not anicteric, + pupils not reactive and normal pupil size (pupils equal 2mm, not reactive) ENMT: Mouth: + dry oral mucous membranes Neck: trachea midline Respiratory: + retractions, + uses accessory muscles, + prolonged expiratory phase and + grunting; no cough Auscultation: + rhonchi (Bilaterally throughout) Cardiovascular: Rate/Rhythm: regular rate and regular rhythm Extremities: + pedal edema (1+ skin tight to knees b/l); + abnormal capillary refill (8 seconds in peripheries, 3-4 seconds centrally) Gastrointestinal (Abdomen): Inspection/Auscultation: + abdomen distended Skin: + jaundice Trauma: + evidence of skin trauma (ecchymosis over bilateral shoulders and anterior chest) Neurologic: + obtunded GCS 9 [id number] Patient has a gag reflex Psychiatric: Orientation: + not alert Results & Data Results & Data ([facility]) Vital Signs (Past 12 Hours) Vital Signs Temp Pulse Resp BP Pulse Ox 05/09/20 13:08 34.1 C L 92 H 22 98/59 L 100 05/09/20 12:50 34.1 C L 95 H 20 95/61 L 100 05/09/20 11:37 94 H 17 102/59 L 100 05/09/20 11:35 95 H 17 100 05/09/20 11:31 95 H 18 72/42 L 100 05/09/20 11:30 93 H 19 100 05/09/20 11:25 91 H 20 95/57 L 100 05/09/20 11:22 92 H 18 108/83 100 05/09/20 11:20 92 H 18 100 05/09/20 11:16 91 H 18 99/41 L 100 05/09/20 11:15 93 H 21 100 05/09/20 11:14 94 05/09/20 11:11 93 H 17 114/64 100 05/09/20 11:10 90 17 100 05/09/20 11:06 89 17 77/50 L 100 05/09/20 11:05 88 18 100 05/09/20 11:00 87 17 79/68 L 100 05/09/20 10:55 89 17 90/50 L 100 05/09/20 10:50 92 H 18 109/68 100 05/09/20 10:47 90 18 85/59 L 100 05/09/20 10:46 93 H 18 88/51 L 100 05/09/20 10:45 18 100 05/09/20 10:41 34.4 C L 86 14 109/58 L 93 05/09/20 10:40 92 H 18 100 05/09/20 10:36 89 19 100 05/09/20 10:31 90 19 122/[address] head/brain wo con IMPRESSION: 1. No acute intracranial findings 2. Left zygomatic arch fracture, possibly old. CERVICAL SPINE CT IMPRESSION: 1. No fractures within the cervical spine. 2. Subcutaneous edema seen throughout the neck as well as mild edema surrounding the thyroid gland. CHEST CT WITH CONTRAST IMPRESSION: 1. Multiple healing left-sided rib fractures and a healing manubrial fracture. No acute fractures identified within the chest. 2. No pneumothorax. 3. Cirrhosis with ascites. This is better appreciated on the same day abdomen and pelvis CT. 4. Mild diffuse body wall edema. 5. Small bilateral pleural effusions. 6. Mild emphysema. 7. Mild congestive change suggested within the lungs. 8. There are 2 nodular densities within the right lung with the largest at the right lung base measuring 1.2 cm. This favors atelectasis. However, [address] follow-up recommended to ensure stability. ABDOMEN AND PELVIS CT WITH IV CONTRAST IMPRESSION: 1. Mildly limited study as above. 2. Numerous healing subacute left-sided rib fractures. No acute fracture identified. 3. No evidence of acute solid organ injury. 4. Cirrhotic liver disease with stigmata of portal venous hypertension with abdominal pelvic varices, small volume of abdominal pelvic ascites with anasarca and small pleural effusions. 5. Wall thickening of the stomach, small and large bowel is likely secondary to underlying chronic liver disease. Nonspecific gastroenteritis/colitis considered less likely. 6. Additional findings as above. Medications Administered ER medications given: Banana bag 1L Clonidine patch 0.3 mg/24-hour NSS 1 L bolus Haldol 5 mg IV Dextrose 50% 50 mL IV Zosyn 4.5 g IV Levaquin 750 mg IV Octreotide IV bolus and drip Pantoprazole IV bolus and drip Vitamin K 10 mg N-acetylcysteine tapering protocol ECG Rate (beats per minute): 90 Rhythm: normal sinus Findings: + other (Poor quality affecting interpretation); no acute ischemic change Comparison ECG Date: from (December 28, 2019) Change: no significant change (R wave progression is different but suspect this is down to lead placement) Code Status & VTE Plan Code Status Full VTE Prophylaxis Plan VTE Prophylaxis will be ordered: No PG Care Time/CCT Total # of Minutes Spent Total Time Spent with Patient: Total time spent is greater than 50% in coordination of care (as documented) at patient's floor/unit and/or counseling patient: Coding Level of Care Code 51163 Initial Inpt Care Lvl 3 Diagnoses Goals of care, counseling/discussion Z71.89 Metabolic encephalopathy G93.41 Sepsis A41.9 Macrocytic anemia D53.9 DIC (disseminated intravascular coagulation) D65 Thrombocytopenia D69.6 GI bleed K92.2 Hypoglycemia E16.2 Acute hepatic failure K72.00 Hypomagnesemia E83.42 COPD (chronic obstructive pulmonary disease) J44.9 Hepatic cirrhosis K74.60 Spontaneous bacterial peritonitis K65.2 Multiorgan failure
--- NOTE | 2020-05-09 14:22 | Electrocardiogram Report ---
Test Reason : Blood Pressure : / mmHG Vent. Rate : 090 BPM Atrial Rate : 091 BPM P-R Int : 166 ms QRS Dur : 062 ms QT Int : 404 ms P-R-T Axes : 076 035 -29 degrees QTc Int : 494 ms Poor data quality, interpretation may be adversely affected Sinus rhythm Low voltage QRS Abnormal ECG When compared with ECG of 28-DEC-2019 23:13, Significant changes have occurred Confirmed by Hunter Montes ([id number]) on 05/09/2020 2:21:56 PM Referred By: ED Confirmed By:Hunter Montes
[2020-05-09] MEDS ORDERED: PIPERACILLIN/TAZOBACTAM 4.5 GM/120ML D5W ONE (14:24)
[2020-05-09] MEDS ORDERED: D5W IV ONE (15:38)
[2020-05-09] MEDS ORDERED: LEVOFLOXACIN 750 MG/150 ML IV ONE (15:38)
--- NOTE | 2020-05-09 15:53 | Critical Care Consultation ---
Date of Consultation May 09, 2020 Assessment & Plan (1) Multiorgan failure: Reason Critically Ill: 70-year-old male with multisystem organ failure, acute blood loss anemia secondary to gastrointestinal hemorrhage PLAN: Neuro: Metabolic encephalopathy -At minimum hepatic encephalopathy likely multifactorial Resp: Tolerating nasal cannula CV: History abdominal aortic aneurysm Fluids/Renal: Acute kidney injury ID: Possible/probable spontaneous bacterial peritonitis GI/Nutrition: End-stage liver disease Acute hepatic insufficiency Probable alcoholic cirrhosis -Known esophageal varices Heme: Anemia: Acute blood loss from gastrointestinal losses Endocrine: ICU hyperglycemia protocol Code Status: I had a long discussion with the patient's nephew. The patient recently updated his living well as well as healthcare power of divorce attorney designating his nephew who I was discussing with. The patient does have children but they are reported to be estranged from him. It is the nephew's belief that he would not want aggressive heroic procedures undertaken and would opt for comfort care at this time. The patient was very adamant about living independently and over the past several weeks and months it has become more difficult for the patient to live independently. I believe the patient is in end-stage medical condition without meaningful chance of recovery as defined by the patient's nephew who is his medical power of divorce attorney. I feel it is appropriate to transition to comfort measures. Disposition: Transfer to medical floor with expectant management. (2) Cirrhosis, alcoholic: (3) Metabolic encephalopathy: (4) Goals of care, counseling/discussion: (5) Acute hepatic failure: (6) GI bleed: Supervising Physician Co-Signing Physician Notes I have personally spent 60 minutes of critical care time in the direct management of this patient. This is a life/limb threatening event. This includes time spent evaluating patient, direct bedside care, chart review, placing orders, interpretation of diagnostic studies, discussion with consultants, patient, and/or family members regarding treatment decisions, as well as other required patient management activities. This time is exclusive of all separately billable procedures, and teaching time and separate from and in addition to any other critical care service time. History of Present Illness Reason for Consultation: Multisystem organ failure, known cirrhosis with esophageal varices and gastrointestinal hemorrhage. Requesting Physician: Fidencio Campbell MD Attending Physician: Macario Dyer MD History of Present Illness Patient was found by staff toxicologist this morning, additional history is obtained from the patient's nephew, he reports that he is last in touch with the patient Thursday night there was an intervening Thursday and then he was found in his apartment by his caregiver on Thursday, the nephew reports that it appears the patient had fallen there was evidence of patient attempting to get up with hand parents on the wall. He had recently discussed with his uncle last wishes as his uncle reported he was "fading out" Allergies Allergy/AdvReac Type Severity Reaction Status Date / Time albuterol Allergy Mild eye Verified 05/09/20 11:45 swelling aspirin AdvReac Mild uset Verified 05/09/20 11:45 stomach Home Medications Medication Instructions Recorded Confirmed Type folic acid 1 mg tablet 1 mg PO DAILY #30 tab 02/08/20 05/09/20 Rx levalbuterol tartrate 45 2 inh INHALATION Q6H PRN #15 g 02/08/20 05/09/20 Rx mcg/actuation aerosol inhaler nadolol 40 mg tablet 40 mg PO DAILY #30 tab 02/08/20 05/09/20 Rx omeprazole 20 mg capsule,delayed 20 mg PO DAILY #30 cap 02/08/20 05/09/20 Rx release thiamine HCl (vitamin B1) 100 mg 100 mg PO DAILY #30 tab 02/08/20 05/09/20 Rx tablet magnesium oxide 400 mg (241.3 mg 400 mg PO DAILY #30 tab 03/14/20 05/09/20 Rx magnesium) tablet fluticasone propion-salmeterol 1 inh INH BID 05/09/20 05/09/20 History [Advair Diskus] Patient History Medical History (Updated 05/10/20 @ 17:06 by Guanako Brandt MD) Abdominal aortic aneurysm (07/2019) Acid reflux Atherosclerotic cardiovascular disease Cholelithiasis COPD (chronic obstructive pulmonary disease) Emphysema of lung Esophageal 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 Hepatic cirrhosis Hypertension Portal hypertension Splenomegaly Thiamine deficiency Thrombocytopenia Surgical History S/P hernia repair Family History Denies family history of Ovarian cancer Prostate cancer Myocardial infarction Breast cancer Colorectal cancer Social History Smoking Status: Never smoker Age Quit Using Tobacco: 38; packs per day: 3; Hx Alcohol Use: Yes Hx Substance Use: No (aox1, n/a) Preferred Language: Guatemalan Communication Ability: Unable Visual Impairment: No Limitations Hearing Ability: Hard of Hearing Storeroom Clerk Required: No Beliefs That Will Affect Care: None marital status: Current Living Situation: Alone Current Living Situation Comment: Lives in [facility] current occupational status: retired Feels Safe at Home: Declines to Answer Childhood Exposure to Second-Hand Smoke: No caffeine: Yes (Coffee x 1/2 cup per day. ) during the past year weight has: remained stable Dental Care, Regularly: No Physical Activity Frequency: Daily Seatbelt Use: never Sunscreen Use: No Assistive Devices: Oxygen - Continuous Review of Systems Review of Systems: Unobtainable due to reduced consciousness Physical Exam Physical Exam: General: Cachectic, bruised, patient appearing older than his stated age I have reviewed the recorded vital signs Neurological: Glascow Coma Scale: Eyes: 2, Verbal 2, Motor 5, Total 10, moves all 4 extremities, Psychological: Not following complex commands, not following simple commands Eyes: Pupils are equal, round and reactive to light, icteric sclera. Symmetrical lids. HENT: Mucus in oropharynx, dry mucous membranes. Neck: Supple. Symmetric. trachea midline. No thyromegaly. Cardiovascular: Decreased peripheral perfusion. Distal pulses 1+ and capillary refill is prolonged. No JVD. Respiratory: Respirations are labored and snoring, accessory muscle use of the neck. Breath sounds are equal but rhonchorous Gastrointestinal: Soft. Non-distended. Positive hepatosplenomegaly with obvious anasarca Lymphatic: No cervical lymphadenopathy. Diffuse whole-body edema/anasarca Musculoskeletal: No deformity. clubbing nor cyanosis. Skin tears and bruises noted throughout all extremities Skin: Multiple ecchymoses in various stages of resolution Results & Data Results & Data ([facility]) Vital Signs (Past 12 Hours) Vital Signs Temp Pulse Resp BP Pulse Ox 05/09/20 14:53 34.8 C L 90 20 120/59 L 98 05/09/20 14:35 100 H 19 122/73 100 05/09/20 14:30 91 H 18 120/53 L 98 05/09/20 14:25 94 H 17 130/56 L 100 05/09/20 14:20 92 H 19 106/64 100 05/09/20 14:15 95 H 19 105/58 L 100 05/09/20 14:10 93 H 17 109/58 L 100 05/09/20 14:05 91 H 19 111/48 L 100 05/09/20 14:00 17 108/62 100 05/09/20 13:56 17 71/62 L 100 05/09/20 13:55 99 H 18 100 05/09/20 13:53 34.6 C L 91 H 21 111/48 L 100 05/09/20 13:50 93 H 25 H 130/56 L 100 05/09/20 13:45 98 H 22 107/61 100 05/09/20 13:40 96 H 19 128/64 100 05/09/20 13:35 94 H 24 102/58 L 100 05/09/20 13:30 94 H 22 133/54 L 100 05/09/20 13:25 89 18 124/70 100 05/09/20 13:23 34.8 C L 99 H 20 103/72 100 05/09/20 13:21 90 18 115/54 L 100 05/09/20 13:20 93 H 17 100 05/09/20 13:15 90 22 109/55 L 100 05/09/20 13:10 94 H 17 98/59 L 100 05/09/20 13:08 34.1 C L 92 H 22 98/59 L 100 05/09/20 13:05 93 H 24 102/52 L 100 05/09/20 13:00 90 14 90/54 L 100 05/09/20 12:55 91 H 19 104/53 L 100 05/09/20 12:50 34.1 C L 92 H 18 95/61 L 100 05/09/20 12:45 98 H 20 103/57 L 100 05/09/20 12:40 97 H 16 102/59 L 100 05/09/20 12:35 97 H 19 102/66 100 05/09/20 12:30 97 H 16 97/63 L 100 05/09/20 12:25 102 H 21 108/61 100 05/09/20 12:21 100 H 18 102/85 97 05/09/20 12:20 101 H 14 100 05/09/20 12:15 103 H 16 108/65 100 05/09/20 12:11 102 H 21 100 05/09/20 12:10 97 H 20 100 05/09/20 12:06 94 H 20 95/53 L 96 05/09/20 11:46 98 05/09/20 11:44 92 H 16 88/59 L 98 05/09/20 11:40 93 H 18 66/46 L 100 05/09/20 11:38 89 17 100 05/09/20 11:37 94 H 17 102/59 L 100 05/09/20 11:35 95 H 17 100 05/09/20 11:31 95 H 18 72/42 L 100 05/09/20 11:30 93 H 19 100 05/09/20 11:25 91 H 20 95/57 L 100 05/09/20 11:22 92 H 18 108/83 100 05/09/20 11:20 92 H 18 100 05/09/20 11:16 91 H 18 99/41 L 100 05/09/20 11:15 93 H 21 100 05/09/20 11:14 94 05/09/20 11:11 93 H 17 114/64 100 05/09/20 11:10 90 17 100 05/09/20 11:06 89 17 77/50 L 100 05/09/20 11:05 88 18 100 05/09/20 11:00 87 17 79/68 L 100 05/09/20 10:55 89 17 90/50 L 100 05/09/20 10:50 92 H 18 109/68 100 05/09/20 10:47 90 18 85/59 L 100 05/09/20 10:46 93 H 18 88/51 L 100 05/09/20 10:45 18 100 05/09/20 10:41 34.4 C L 86 14 109/58 L 93 05/09/20 10:40 92 H 18 100 05/09/20 10:36 89 19 100 05/09/20 10:31 90 19 122/80 100 Coding Level of Care Code Critical Care 1st 30-74 mins Diagnoses Multiorgan failure Cirrhosis, alcoholic K70.30 Metabolic encephalopathy G93.41 Goals of care, counseling/discussion Z71.89 Acute hepatic failure K72.00 GI bleed K92.2 Time Spent (min) 60
[2020-05-09] MEDS ORDERED: CHECK CLONIDINE PATCH PLACEMENT SCH (16:00)
[2020-05-09] MEDS ORDERED: ICU PROTOCOL FOR HYPERGLYCEMIA PRN (16:07)
[2020-05-09] MEDS ORDERED: PATIENT'S HEIGHT AND/OR WEIGHT NEEDED SCH (16:15)
[2020-05-09] MEDS ORDERED: ONDANSETRON 4 MG OD TAB SL PRN (16:48)
[2020-05-09] MEDS ORDERED: HYOSCYAMINE SULFATE 0.125 MG TAB SL PRN (16:48)
[2020-05-09] MEDS ORDERED: PROMETHAZINE HCL 12.5 MG in SODIUM CHLORIDE 0.9% 50 ML IV PRN (16:48)
[2020-05-09] MEDS ORDERED: LORazepam 2 MG/4 ML VIAL IV PRN (16:48)
[2020-05-09] MEDS ORDERED: GLYCOPYRROLATE 0.2 MG/ML VIAL IV PRN (16:48)
[2020-05-09] MEDS ORDERED: LORazepam 0.5 MG TAB PO PRN (16:48)
[2020-05-09] MEDS ORDERED: haloperidoL 1 MG TAB PO PRN ×2 (16:48)
[2020-05-09] MEDS ORDERED: ATROPINE SULFATE 1% OP SOLN 2 ML BTL SL PRN (16:48)
[2020-05-09] MEDS ORDERED: ONDANSETRON INJ 2 MG/ML 2 ML VIAL IV PRN (16:48)
[2020-05-09] MEDS ORDERED: LORazepam 0.5 MG/1 ML VIAL IV PRN (16:48)
[2020-05-09] MEDS: MoRPHine SULFATE 2 MG/ML CARP IV PRN ×2 (17:27→21:34)
[2020-05-09] MEDS: LORazepam 0.5 MG/1 ML VIAL IV PRN (19:52)
[2020-05-09] MEDS ORDERED: PIPERACILLIN/TAZOBACTAM 4.5 GM in DEXTROSE 5% 100 ML IV SCH (20:00)
[2020-05-10] MEDS: MoRPHine SULFATE 2 MG/ML CARP IV PRN ×2 (02:36→10:05)
--- NOTE | 2020-05-10 08:59 | Gastrointestinal Consultation ---
Date of Consultation May 10, 2020 Assessment & Plan (1) Sepsis: (2) Multiorgan failure: (3) Anemia: (4) GI bleed: (5) Hepatic cirrhosis: (6) Alcoholism: Pt is a 70 y/o male w hx of ETOH abuse, cirrhosis complicated by hepatic encephalopathy, varices development who was found on home floor by home health nurse and brought to ED yesterday. On eval, he appears septic, have signs of DIC, acute on chronic anemia, multiorgan failure. After discussion between ICU attending and pt's nephew (POA), decision has been made to make pt comfort care. Pls recall GI prn Supervising Physician Co-Signing Physician Notes I saw and evaluated the patient. We are consulted for evaluation of alcohol abuse and a question of gastrointestinal bleeding. It appears that the patient was put on 2 care only yesterday afternoon shortly after admission. Physical examination Frail appearing male much older appearing than stated age Multiple contusions noted throughout the body Patient unable to respond to verbal or tactile stimuli Impression: Patient with alcoholic liver disease presenting with rhabdomyolysis, normally we could certainly offer further evaluation with upper endoscopy to screen for evidence of variceal hemorrhage. As the patient was placed on to comfort measures only we will hold on endoscopic intervention. Please call our service should the situation or family wishes change History of Present Illness Reason for Consultation: Varices with cirrhosis Requesting Physician: Dr. Fidencio Campbell Attending Physician: Dr. Kanu Meyers History of Present Illness Received a call from ED physician Dr. Fidencio Campbell about this pt. Pt found on home floor, by home health nurse. Last contact by home health nurse about 48hrs ago. He appears intoxicated, bruises all over body. He has hx of ETOH abuse, cirrhosis w complications of hepatic encephalopathy, esophageal varices. Previous endoscopies done at [facility] but we don't have records to review. He had telephonic visit by [facility] in August but no f/u due to transportation issues. Also admitted last in November for ETOH intoxication, seen by our GI team as well. Chart reviewed. Pt has worsening anemia. Not having mark hematemesis or over signs of melena/LGIB on presentation however last evening in ICU did have BRBPR. He is mildy hypotensive, tachy, w hypothermia. + elevation of Trophonin, CK, lactic acid levels. Coagulopathy and thrombocytopenia is noted. LFTs up w Tbili 11 (similar during his November admission). ABIGAIL. Last night discussion had with pt's nephew (POA) and ICU division field inspector about pt's complicated medical issues and poor prognosis. Nephew decides to make pt comfort care. Pt seen in room obtunded, opening eyes slowly but not answering questions or following instructions. Allergies Allergy/AdvReac Type Severity Reaction Status Date / Time albuterol Allergy Mild eye Verified 05/09/20 11:45 swelling aspirin AdvReac Mild uset Verified 05/09/20 11:45 stomach Home Medications Medication Instructions Recorded Confirmed Type folic acid 1 mg tablet 1 mg PO DAILY #30 tab 02/08/20 05/09/20 Rx levalbuterol tartrate 45 2 inh INHALATION Q6H PRN #15 g 02/08/20 05/09/20 Rx mcg/actuation aerosol inhaler nadolol 40 mg tablet 40 mg PO DAILY #30 tab 02/08/20 05/09/20 Rx omeprazole 20 mg capsule,delayed 20 mg PO DAILY #30 cap 02/08/20 05/09/20 Rx release thiamine HCl (vitamin B1) 100 mg 100 mg PO DAILY #30 tab 02/08/20 05/09/20 Rx tablet magnesium oxide 400 mg (241.3 mg 400 mg PO DAILY #30 tab 03/14/20 05/09/20 Rx magnesium) tablet fluticasone propion-salmeterol 1 inh INH BID 05/09/20 05/09/20 History [Advair Diskus] Patient History Medical History Abdominal aortic aneurysm (07/2019) Acid reflux Atherosclerotic cardiovascular disease Cholelithiasis COPD (chronic obstructive pulmonary disease) Emphysema of lung Esophageal 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 Hepatic cirrhosis Hypertension Portal hypertension Splenomegaly Thiamine deficiency Thrombocytopenia Surgical History S/P hernia repair Family History Denies family history of Ovarian cancer Prostate cancer Myocardial infarction Breast cancer Colorectal cancer Social History Smoking Status: Never smoker Age Quit Using Tobacco: 38; packs per day: 3; Hx Alcohol Use: Yes Hx Substance Use: No (aox1, n/a) Preferred Language: Wolof Communication Ability: Unable Visual Impairment: No Limitations Hearing Ability: Hard of Hearing Dental Appliance Mechanic Required: No Beliefs That Will Affect Care: None marital status: Current Living Situation: Alone Current Living Situation Comment: Lives in [facility] current occupational status: retired Feels Safe at Home: Declines to Answer Childhood Exposure to Second-Hand Smoke: No caffeine: Yes (Coffee x 1/2 cup per day. ) during the past year weight has: remained stable Dental Care, Regularly: No Physical Activity Frequency: Daily Seatbelt Use: never Sunscreen Use: No Assistive Devices: None Review of Systems Review of Systems: Unobtainable due to reduced consciousness Physical Exam Constitutional: + ill appearing and + cachectic Respiratory: no respiratory distress and does not use accessory muscles Gastrointestinal (Abdomen): Percussion/Palpation: abdomen soft; abdomen nontender Skin: + jaundice Neurologic: Obtunded, not answering questions/following commands Lymphatic: no lymphedema (1) Anemia Anemia type: unspecified type Qualified Code(s): D64.9 - Anemia, unspecified
--- NOTE | 2020-05-10 09:41 | Hospitalist Progress Note ---
Date of Service May 10, 2020 Assessment & Plan (1) Cirrhosis, alcoholic: Ted Eason is a 70-year-old male past medical history significant for alcoholic cirrhosis; who presented for acute decompensation after being found by home nursing laying on his bed. Was last seen alert and responsive approximately 48 hours prior to being found, but had last talked with nephew approximately 12 hours prior to being found. Patient currently on comfort care measures given poor prognosis for recovery. Alcoholic cirrhosis: - Initial laboratory work demonstrated patient with INR of 3.1, bilirubin 11.8, creatinine 1.66 - Meld score of 33, demonstrating 3-month mortality to be 52.6% - Discussions with family regarding poor prognosis, family determined comfort measures would be less at this time - Case management consulted for arrangement of end-of-life care/options Admission and Anticipated Discharge Date Admission Date: May 09, 2020 Supervising Physician Co-Signing Physician Notes I personally examined the patient and verified all valencia points of history and exam, discussed case, and agree with decision making with Dr Brandt comfortable appearing. no HPI or ROS obtainable vitals noted nad heent nc at mmm breathing unlabored no accessory muscles good effort very jaundiced encephalopathy / end stage liver disease / comfort care - appearing comfortable. continue current care. Subjective Patient seen with family at bedside, nephew stating that he was most recently talked with patient Thursday afternoon/evening prior to patient being found down and unresponsive Thursday. Feels like he was in his usual normal state of health, however recognizes that patient felt like he was declining over time. Has not been a consumer of alcohol for many months, but in recognition of declining health recently completed Will and power of prosecuting attorney paperwork. Address concerns of discomfort family had regarding patient's extensive bruising and overall deterioration. Review of Systems Review of Systems: Unobtainable due to reduced consciousness Physical Exam Constitutional: + thin and + frail appearing; no acute distress Respiratory: normal respiratory effort and + retractions (Supraclavicular and suprasternal); no respiratory distress, no labored breathing, not tachypneic and no nasal flaring Skin: + jaundice and + ecchymosis (Significant of left ear) Neurologic: Unresponsive to verbal stimuli, light touch; no purposeful movements demonstrated throughout the day. Results & Data Results & Data ([facility]) Laboratory Results 05/09/20 Range/Units 11:13 Blood Type O Positive Antibody Screen NEGATIVE Crossmatch See Detail Medications Administered Current Inpatient Medications Hyoscyamine (Hyoscyamine Sulfate 0.125 Mg Tab) 0.125 mg SL Q4H PRN PRN Reason: Secretions or Pulm Congestion Stop: 06/08/20 16:47 Promethazine HCl 12.5 mg/ (Sodium Chloride) 50.5 mls @ 202 mls/hr IV Q6H PRN PRN Reason: Nausea And Vomiting Stop: 06/08/20 16:47 Lorazepam (Ativan) 0.5 mg in 1 mls @ 1 mls/min IV Q4H PRN PRN Reason: Anxiety/Agitation Stop: 06/08/20 17:30 Last Admin: 05/10/20 12:11 Dose: 1 mls/min Documented by: Miscellaneous (Remove Clonidine Patch) 1 ea N/A CQWK BRANDI Stop: 06/08/20 10:29 Last Admin: 05/09/20 11:44 Dose: Not Given Documented by: Morphine Sulfate (Morphine Sulfate 2 Mg/Ml Carp) 2 mg IV Q4H PRN PRN Reason: Pain or Respiratory Distress Stop: 05/23/20 16:47 Last Admin: 05/10/20 10:05 Dose: 2 mg Documented by: Ondansetron HCl (Ondansetron Inj 2 Mg/Ml 2 Ml Vial) 4 mg IV Q4H PRN PRN Reason: Nausea And Vomiting Stop: 06/08/20 16:47 Ondansetron HCl (Ondansetron 4 Mg Od Tab) 4 mg SL Q4H PRN PRN Reason: Nausea And Vomiting Stop: 06/08/20 16:47 Resident Activity Tracking Resident Involvement: Resident Care Provided Care Provided: Adult Hospital Medicine
[2020-05-10] MEDS: LORazepam 0.5 MG/1 ML VIAL IV PRN (12:11)
--- NOTE | 2020-05-10 19:35 | Billing Data ---
Date of Service May 10, 2020 Coding Level of Care Code 93974 Subseq Hosp Care Lvl 2
[2020-05-11] MEDS: LORazepam 0.5 MG/1 ML VIAL IV PRN ×3 (00:32→13:10)
[2020-05-11] MEDS: MoRPHine SULFATE 2 MG/ML CARP IV PRN ×2 (05:29→16:10)
--- NOTE | 2020-05-11 15:54 | Hospitalist Progress Note ---
Date of Service May 11, 2020 Assessment & Plan (1) Cirrhosis, alcoholic: Ted Eason is a 70-year-old male past medical history significant for alcoholic cirrhosis; who presented for acute decompensation after being found by home nursing laying on his bed. Was last seen alert and responsive approximately 48 hours prior to being found, but had last talked with nephew approximately 12 hours prior to being found. Patient currently on comfort care measures given poor prognosis for recovery. Alcoholic cirrhosis: - Initial laboratory work demonstrated patient with INR of 3.1, bilirubin 11.8, creatinine 1.66 - Meld score of 33, demonstrating 3-month mortality to be 52.6% - Discussions with family regarding poor prognosis, family determined comfort measures would be less at this time - Case management consulted for arrangement of end-of-life care/options Admission and Anticipated Discharge Date Admission Date: May 09, 2020 Supervising Physician Co-Signing Physician Notes I personally examined the patient and verified all valencia points of history and exam, discussed case, and agree with decision making with Dr Renteria no HPI or ROS obtainable but comfortable appearing. vitals noted nad heent nc at mmm breathing unlabored no accessory muscles good effort very jaundiced encephalopathy / end stage liver disease / comfort care - appearing comfortable. continue current care. dr renteria had discussions w family today. Subjective Patient was seen with family at bedside, family concerned about the extent to which he has not been able to eat; wondering if he could be feeling hungry, stated they have tried to give him some crackers, and swab his mouth with water to see if he was thirsty and he has not reacted to these things so they thought most likely he was not hungry or thirsty. Explained that this is a common effect of severe illness and there is a decrease in hunger and thirst response from the brain that limits their desire to eat or drink. Continues to not complete purposeful movement or respond to verbal stimuli. Review of Systems Review of Systems: Unobtainable due to reduced consciousness Physical Exam 2 Constitutional: + thin and + frail appearing; no acute distress Respiratory: normal respiratory effort and + retractions (Supraclavicular and suprasternal); no respiratory distress, no labored breathing, not tachypneic and no nasal flaring Skin: + jaundice and + ecchymosis (Numerous all over body) Neurologic: moves all extremities and + obtunded Resident Activity Tracking Resident Involvement: Resident Care Provided Care Provided: Adult Hospital Medicine
--- NOTE | 2020-05-11 18:26 | Billing Data ---
Date of Service May 11, 2020 Coding Level of Care Code 75533 Subseq Hosp Care Lvl 1
--- NOTE | 2020-05-11 18:27 | Billing Data ---
Date of Service May 11, 2020 Coding Level of Care Code 69533 Subseq Hosp Care Lvl 1
[2020-05-12] MEDS: MoRPHine SULFATE 2 MG/ML CARP IV PRN ×4 (01:16→18:16)
[2020-05-12] MEDS: LORazepam 0.5 MG/1 ML VIAL IV PRN ×2 (03:59→14:25)
--- NOTE | 2020-05-12 07:51 | Hospitalist Progress Note ---
Date of Service May 12, 2020 Assessment & Plan (1) Cirrhosis, alcoholic: Ted Eason is a 70-year-old male past medical history significant for alcoholic cirrhosis; who presented with acute decompensation after being found by home nursing laying on his bed, having been last seen alert and responsive 48 hours prior, but had last talked with nephew approximately 12 hours prior to being found. After discussions with patient and family,moved to comfort care measures given poor prognosis for recovery. Alcoholic cirrhosis with Comfort Care status - Initial laboratory work demonstrated patient with INR of 3.1, bilirubin 11.8, creatinine 1.66 - Meld score of 33, demonstrating 3-month mortality to be 52.6% - Discussions with family regarding poor prognosis, family determined comfort measures appropriate at this time - Morphine for air hunger/pain - Atropine for secretions - Zofran and Promethazine for Nausea and Vomiting - Ativan for anxiety - Case management consulted for arrangement of end-of-life care[inpatient hospice vs. SNF placement] Code Status: DNR/DNI Admission and Anticipated Discharge Date Admission Date: May 09, 2020 Supervising Physician Co-Signing Physician Notes I personally examined the patient and verified all valencia points of history and exam, discussed case, and agree with decision making with Dr Moran no HPI or ROS obtainable but comfortable appearing. vitals noted nad heent nc at mmm breathing unlabored no accessory muscles good effort very jaundiced encephalopathy / end stage liver disease / comfort care - appearing comfortable. continue current care. ?snf/hospice as an option. Subjective sleeping comfortably today. no concerns, continuing comfort care. Review of Systems Review of Systems: Unobtainable due to reduced consciousness Physical Exam Physical Exam: Constitutional: in no apparent distress,sleeping comfortably in bed, thin Cardiac: Regular rate Pulm: no extra work of breathing, sats maintained on 2LNC Resident Activity Tracking Resident Involvement: Resident Care Provided Care Provided: Adult Hospital Medicine
--- NOTE | 2020-05-12 13:57 | Billing Data ---
Date of Service May 12, 2020 Coding Level of Care Code 96869 Subseq Hosp Care Lvl 1
[2020-05-13] MEDS: MoRPHine SULFATE 2 MG/ML CARP IV PRN ×4 (03:15→22:15)
--- NOTE | 2020-05-13 10:24 | Hospitalist Progress Note ---
Date of Service May 13, 2020 Assessment & Plan (1) Cirrhosis, alcoholic: Ted Eason is a 70-year-old male past medical history significant for alcoholic cirrhosis; who presented with acute decompensation after being found by home nursing laying on his bed, having been last seen alert and responsive 48 hours prior, but had last talked with nephew approximately 12 hours prior to being found. After discussions with patient and family,moved to comfort care measures given poor prognosis for recovery. Alcoholic cirrhosis with Comfort Care status - Initial laboratory work demonstrated patient with INR of 3.1, bilirubin 11.8, creatinine 1.66 - Meld score of 33, demonstrating 3-month mortality to be 52.6% - Discussions with family regarding poor prognosis, family determined comfort measures appropriate at this time - Morphine for air hunger/pain - hyocyamine for secretions - Zofran and Promethazine for Nausea and Vomiting - Ativan for anxiety - Case management consulted for arrangement of end-of-life care[inpatient hospice vs. SNF placement] Code Status: DNR/DNI Admission and Anticipated Discharge Date Admission Date: May 09, 2020 Supervising Physician Co-Signing Physician Notes I personally examined the patient and verified all valencia points of history and exam, discussed case, and agree with decision making with Dr Moran no HPI or ROS obtainable but comfortable appearing. vitals noted nad heent nc at mmm breathing unlabored no accessory muscles good effort very jaundiced encephalopathy / end stage liver disease / comfort care - still appearing comfortable. continue current care. ?snf/hospice as an option depending on how he continues to appear. Subjective sleeping comfortably. required morphine 4 times yesterday, otherwise not requiring medical intervention. Review of Systems Review of Systems: Unobtainable due to reduced consciousness Physical Exam Physical Exam: Constitutional: in no apparent distress,sleeping comfortably in bed, thin Cardiac: Regular rate Pulm: no extra work of breathing, sats maintained on 2LNC Resident Activity Tracking Resident Involvement: Resident Care Provided Care Provided: Adult Hospital Medicine
--- NOTE | 2020-05-13 18:36 | Billing Data ---
Date of Service May 13, 2020 Coding Level of Care Code 71951 Subseq Hosp Care Lvl 1
[2020-05-13] MEDS: LORazepam 0.5 MG/1 ML VIAL IV PRN (19:56)
[2020-05-14] MEDS: MoRPHine SULFATE 2 MG/ML CARP IV PRN ×2 (05:00→08:32)
--- NOTE | 2020-05-14 07:06 | Hospitalist Progress Note ---
Date of Service May 14, 2020 Assessment & Plan Admission and Anticipated Discharge Date Admission Date: May 09, 2020
--- NOTE | 2020-05-14 10:58 | Death Pronouncement Note ---
Date of Service May 14, 2020 Pronouncement Note Admission Date Admission Date: May 09, 2020 Date and Time of Date of : 05/14/20 Time of : 10:30 Contributing Factors (1) Cirrhosis, alcoholic: (2) Metabolic encephalopathy: (3) Multiorgan failure: Hospital Course Hospital Course: See discharge summary from 05/14/20 Additional Data Confirmation of : no pulse, no respirations, no heart sounds and pupils fixed and dilated Family: contacted Attending/PCP notified?: Yes Attending physician: Jennifer Padilla MD Was code activated?: No Autopsy requested?: No rn examiner notified?: No Organ bank notified?: No Advance directives: No Resident Activity Tracking Resident Involvement: Resident Care Provided Care Provided: Adult Hospital Medicine
--- NOTE | 2020-05-14 11:31 | Discharge Summary ---
Date of Service May 14, 2020 Admission HPI Per Admitting Provider Ted Eason is a 70-year-old male who presents to the ER after being found on the floor by home health nurse today. Last seen two days prior to this. Unable to get any history from patient due to altered mental state. He has known alcoholic liver cirrhosis and continues to drink alcohol He was previously admitted here in November for direct admission from [facility] due to altered mental status and was diagnosed with alcohol withdrawal at that time. Admission Exam Per Admitting Provider Constitutional: + ill appearing; + not well nourished and no acute distress Eyes: sclerae not anicteric, + pupils not reactive and normal pupil size (pupils equal 2mm, not reactive) ENMT: Mouth: + dry oral mucous membranes Neck: trachea midline Respiratory: + retractions, + uses accessory muscles, + prolonged expiratory phase and + grunting; no cough Auscultation: + rhonchi (Bilaterally throughout) Cardiovascular: Rate/Rhythm: regular rate and regular rhythm Extremities: + pedal edema (1+ skin tight to knees b/l); + abnormal capillary refill (8 seconds in peripheries, 3-4 seconds centrally) Gastrointestinal (Abdomen): Inspection/Auscultation: + abdomen distended Skin: + jaundice Trauma: + evidence of skin trauma (ecchymosis over bilateral shoulders and anterior chest) Neurologic: + obtunded GCS 9 [id number] Patient has a gag reflex Psychiatric: Orientation: + not alert Principal Diagnosis Alcoholic Cirrhosis Discharge Exam Eyes: Nonreactive, Pupils fixed and dilated, Jaundice Heart: No audible heartbeat, no palpable pulse Lungs: No lung sounds audible, no visible chest rise Neurological: Non-responsive to sternal rub or auditory stimuli Discharge Data Allergies Allergy/AdvReac Type Severity Reaction Status Date / Time albuterol Allergy Mild eye Verified 05/09/20 11:45 swelling aspirin AdvReac Mild uset Verified 05/09/20 11:45 stomach Consultations 05/09/20 12:28 Consult Gastroenterology Stat 05/09/20 12:29 Consult Draw Fire Operator Stat 05/09/20 12:36 ED Decision to Admit Stat 05/09/20 16:49 Consult Case Management - Discharge Planning Routine Ordered Studies 05/09/20 10:32 CT abd pelvis IV con only Stat CT cervical spine wo con Stat CT chest w con Stat CT head/brain wo con Stat Hospital Course (1) Cirrhosis, alcoholic: Ted Eason was a 70-year-old male past medical history significant for alcoholic cirrhosis; who presented with acute decompensation after being found by home nursing laying on his bed, having been last seen alert and responsive 48 hours prior to admission, but had last talked with nephew approximately 12 hours prior to being found. After discussions with patient and family,moved to comfort care measures given poor prognosis for recovery. Alcoholic cirrhosis with Comfort Care status - Initial laboratory work demonstrated patient with INR of 3.1, bilirubin 11.8, creatinine 1.66 - Meld score of 33, demonstrating 3-month mortality to be 52.6% - Discussions with family regarding poor prognosis, family determined comfort measures appropriate at this time - Morphine for air hunger/pain - hyocyamine for secretions - Zofran and Promethazine for Nausea and Vomiting - Ativan for anxiety - Case management consulted for arrangement of end-of-life care[inpatient hospice vs. SNF placement] - Patient was evaluated and noted to have passed at 10:30AM on 05/14/20. - Patients family member was contacted regarding patients passing. (2) Metabolic encephalopathy: (3) Multiorgan failure: Total Time Total Time Spent Total Time Spent (In Minutes): see attending attestation Discharge Plan Discharge Items Patient Disposition: Discharge Diagnosis: alcoholic cirrhosis Addtl Attending Provider Instructions: n/a Supervising Physician Co-Signing Physician Notes Resident Physician Supervision Note: I independently interviewed and examined the patient and verified the valencia history and physical, reviewed labs and image studies, discussed the case with the resident Dr. Walsh and agree with the findings and care plan. Resident Activity Tracking Resident Involvement: Resident Care Provided Care Provided: Adult Hospital Medicine
--- NOTE | 2020-05-18 13:44 | Coding Query ---
To promote full compliance with coding requirements relating to patient care, provider participation is requested in all cases of water pollution specialist uncertainty. Please assist us with the question(s) below: Coding Question(s): The diagnoses below were documented in the H&P then subsequently fell off all further documentation. Please indicate if they are still possible diagnoses or ruled out. Physician's Response(s): SEPSIS ( ) Diagnosed and POA ( ) Diagnosed and not POA ( x ) Ruled out ( ) Other (please specify) SBP ( ) Diagnosed and POA ( ) Diagnosed and not POA ( ) Ruled out ( x ) Other (please specify) - unable to diagnose or rule out due to patient being on comfort care. MTDD
== END 2020-05-14 10:30 | disposition expired | DRG 432 ==
LOC: ED 10:18 → SUATTDRO 14:31 → 1E 14:31 → 2W 16:51